=== PATIENT | male | born 1980 | race Caucasian/White ===

== ENCOUNTER 2020-07-02 11:50 | Emergency (ER) | payer MEDICARE, MEDICAID, SELFPAY ==
[2020-07-02 11:59] VITALS: BP 129/81; PULSE 75; RESP 16; TEMP 36.2; O2SAT 100
--- NOTE | 2020-07-02 12:39 | ED.MALEGU ---
HPI - Male Genitourinary General Chief complaint: Urogenital-Male Stated complaint: Abd pain History of Present Illness HPI Narrative: This is a 40-year-old white male who presented to the ED today complaining of painful urination. According to his associate programmer analyst he had 2 episodes of incontinence and has been complaining of painful urination for 2 days. She denies any foul-smelling urine. Patient urinalysis was negative for UTI but he will be treated based off his symptoms. A urine culture has been ordered. The patient denies SOB, CP, palpitation, extremity numbness, lightheadedness, dizziness, constipation, diarrhea, chills, or fever. Patient is a poor historian and is unable to answer many of my questions. MD Complaint: dysuria Related Data Home Medications Medication Instructions Recorded Confirmed aripiprazole 15 mg tablet 15 mg PO tablet 12/17/19 divalproex 125 mg tablet,delayed mg PO 12/17/19 release escitalopram oxalate 10 mg tablet 10 mg PO DAILY tablet 12/17/19 escitalopram oxalate 5 mg tablet 5 mg PO tablet 12/17/19 fluticasone propionate [Flonase INTRANASAL 07/02/20 Allergy Relief] Allergies Allergy/AdvReac Type Severity Reaction Status Date / Time Penicillins Allergy Mild rash Verified 12/17/19 15:43 Review of Systems Review of Systems: Narrative: Patient is a poor historian unable to get a clear review of systems due to patient's mental status. Patient does complain of pain while urinating PMFSH Family History Family History (Updated 09/23/16 @ 10:11 by DOCTOR UNKNOWN) Father Diabetes mellitus Hypertension Other Family history of thyroid disease Social History Social History Smoking status: Never smoker Alcohol intake: current Exam Narrative: Exam Narrative: GENERAL: This is a well-nourished, well-developed patient, in no apparent distress. HEAD: normocephalic, atraumatic. EYES: PERRL. Sclera clear/white. Vision is grossly intact. EARS: External ears normal, auditory canals clear and without drainage, TMs normal without perforation. Hearing grossly intact. NOSE: External nose normal with no obvious nasal discharge, nares without redness, no rhinorrhea. THROAT: Mucous membranes moist, posterior pharynx clear. NECK: Neck supple, non-tender without lymphadenopathy, masses or thyromegaly. CARDIOVASCULAR: Regular rate and rhythm without murmurs, gallops, or rubs. RESPIRATORY: Clear to auscultation. Breath sounds equal bilaterally. No wheezes, rales, or rhonchi. GASTROINTESTINAL: Abdomen soft, non-tender, nondistended. Bowel sounds are active. No hepato-splenomegaly, or palpable masses. No guarding. SKIN: warm, intact with no suspicious lesions or rash, good texture and turgor. NEURO: awake, alert, patient with the mental delay EXTREMITIES: Normal range of motion. No edema. No calf tenderness. Negative Homans sign bilaterally. BACK: Nontender without deformity or crepitance. No flank tenderness. Const: General: cooperative Course Course Emergency Course: Patient will discharge home with Bactrim every 12 hours for 4 days. UA culture sensitivity pending Vital Signs Vital signs: Vital Signs Temperature 97.2 F L 07/02/20 11:59 Pulse Rate 75 07/02/20 11:59 Respiratory Rate 16 07/02/20 11:59 Blood Pressure 129/81 07/02/20 11:59 Pulse Oximetry 100 07/02/20 11:59 Temperature 97.2 F L 07/02/20 11:59 Pulse Rate 75 07/02/20 11:59 Respiratory Rate 16 07/02/20 11:59 Blood Pressure 129/81 07/02/20 11:59 Pulse Oximetry 100 07/02/20 11:59 MDM - Male Genitourinary Differential Diagnosis Differential diagnosis: Likely urinary tract infection and urethritis Lab Data Attestation: I reviewed the patient's lab results. Lab results narrative: UA test negative for UTI Labs: Urine Glucose Negative Reference Range: Negative Urine Bilirubin Negative Reference Range: Negative Urine Ketone
== END 2020-07-02 12:34 | disposition home or self-care (01) ==
PROVIDERS: Emergency Provider Nurse Practitioner
DX: N30.00 Acute cystitis without hematuria (principal)
CPT/HCPCS: 81003; 87086; 87088; 99213; G0463

== ENCOUNTER 2020-07-30 06:48 | Outpatient (NON) | payer MEDICARE, MEDICAID, SELFPAY ==
[2020-07-30 18:38] LABS: SARS-CoV-2 RNA PCR Negative
== END 2020-07-30 06:49 ==
PROVIDERS: PCP Family Medicine; Visit Provider Family Medicine
DX: Z20.828 Contact with and (suspected) exposure to other viral communicable diseases (principal); R51.9 Headache, unspecified; R50.9 Fever, unspecified
CPT/HCPCS: 87635; C9803; U0003

== ENCOUNTER 2020-09-03 17:15 | Emergency (ER) | payer MEDICARE, MEDICAID, SELFPAY ==
[2020-09-03 17:24] VITALS: BP 115/78; PULSE 64; RESP 16; TEMP 36.2; O2SAT 100
--- NOTE | 2020-09-03 17:50 | PC.NURSE ---
1730-When asked pt where he hurts, he points to genital area. Pt also verbally indicates discomfort with palpation of pelvic area.
--- NOTE | 2020-09-03 17:51 | ED.MALEGU ---
HPI - Male Genitourinary General Chief complaint: Urogenital-Male Stated complaint: uti symptoms Time Seen by Provider: 09/03/20 17:45 Source: patient, RN notes reviewed and other (care support representative ) Mode of arrival: ambulatory Limitations: no limitations History of Present Illness HPI Narrative: 40-year-old male who presents to [facility] care accompanied by caregiver with complaints of frequency and urgency and occasional incontinency. Patient does have mental disability and speech difficulty and caregiver states that her boss wanted him checked for urinary tract infection due to increase in his incontinency and urine being dark. When questioned if any pain with urination he denies, denies any pain in his abdomen, caregiver states some urinary frequency noted.Caregiver also states that patient does not drink fluids well especially water. MD Complaint: dysuria and other (increase incontinency) Onset (ago): day(s) (2-3) Duration: intermittent Severity: similar to previous episodes Severity scale (1-10): 4 Quality: aching Associated symptoms: Reports other (incontinency increased) Related Data Sexually active: No Home Medications Medication Instructions Recorded Confirmed aripiprazole 15 mg tablet 7.5 mg PO DAILY tablet 12/17/19 09/03/20 divalproex 125 mg tablet,delayed 125 mg PO BID 12/17/19 09/03/20 release escitalopram oxalate 5 mg tablet 5 mg PO DAILY tablet 12/17/19 09/03/20 Allergies Allergy/AdvReac Type Severity Reaction Status Date / Time Penicillins Allergy Mild rash Verified 09/03/20 17:28 Review of Systems Review of Systems: Narrative: CONSTITUTIONAL: Denies fever, chills, or sweats. EYES: Denies visual changes, redness, or discharge. ENT: Denies rhinorrhea, congestion, sore throat, or otalgia. CARDIOVASCULAR: Denies chest pain, palpitations, or edema. RESPIRATORY: Denies cough or dyspnea. GASTROINTESTINAL: Denies abdominal pain, nausea, vomiting, or diarrhea. GENITOURINARY:positive dysuria no hematuria. SKIN: Denies rash or itching. MUSCULOSKELETAL: Denies back pain, joint pain, or myalgia. NEUROLOGIC: Denies headache, numbness, or weakness. PSYCHIATRIC:Positive history of anxiety or depression, does have mental disability and difficulty with speech All systems reviewed & are unremarkable except as noted in HPI and below PENDING SALE TO [facility] Past Medical History Medical History (Updated 09/04/20 @ 15:50 by Jacquelin Martinez NP) Ear infection Erythema intertrigo Intellectual disability Speech abnormality UTI symptoms Surgical History Surgical History (Updated 09/04/20 @ 15:51 by Jacquelin Martinez NP) History of placement of ear tubes Family History Family History (Updated 09/04/20 @ 15:51 by Jacquelin Martinez NP) Father Diabetes mellitus Hypertension Other Family history of thyroid disease Heart disease Social History Social History (Updated 09/04/20 @ 15:52 by Jacquelin Martinez NP) Smoking status: Never smoker Alcohol intake: never Substance use: never Gender identity (if verbalized by the patient): Male Comments At time of signature, agree with nursing past medical, surgical, social and family history. There is no relevant family history pertinent to the presenting complaint Exam Narrative: Exam Narrative: GENERAL: Well-appearing, well-nourished, and in no acute distress. HEAD: Normocephalic, atraumatic. EYES: PERRLA and EOMI. ENT: Nares clear, no rhinorrhea or epistaxis. Mucous membranes moist. NECK: Supple.no lymphadenopathy CHEST: Clear to auscultation. No respiratory distress.SAO2 100% on room air HEART: Regular rate and rhythm. No murmur heard. Normal peripheral pulses. ABDOMEN: Soft, nontender on palpation, nondistended, normal active bowel sounds.No CVA tenderness, negative McBurney point t
--- NOTE | 2020-09-03 17:59 | PC.NURSE ---
1740-Pt unable to void. Given water to drink per request. Ok with provider.
== END 2020-09-03 18:14 | disposition home or self-care (01) ==
PROVIDERS: Emergency Provider Registered Nurse; PCP Family Medicine
DX: R30.0 Dysuria (principal); R47.9 Unspecified speech disturbances; F79 Unspecified intellectual disabilities
CPT/HCPCS: 81003; 99213; G0463

== ENCOUNTER 2020-09-08 11:00 | Outpatient (RCR) | payer MEDICARE, MEDICAID, SELFPAY ==
--- NOTE | 2020-08-13 12:11 | STOPEVAL ---
INITIAL SPEECH THERAPY EVALUATION: Thank you for referring Catalino Watts to [facility].? The patient is scheduled to be seen for therapy?to identify an AAC device for improved expressive communication 2x/week for 4 weeks. Please review, sign, date and return this plan of care SAADIA. I agree with and certify that the following plan of care is medically necessary. Referring Physician Date Attending Provider: Marva Schuler NP Referring Provider: Marva Schuler NP * Outpatient Evaluation Start: 08/11/20 11:12 Freq: Status: Active Protocol: Document 08/11/20 11:00 LONI (Rec: 08/12/20 16:32 [facility] [email or web address]) Therapy Assessment Status Assessment Status Assessment Status Evaluation Outpatient Past Medical History Past Medical History Source of Past Medical History Other Other Source of Past Medical History Medical history was taken from a RN from the pt's residential , [facility]. 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 Pt, however, reportedly exhibited (L) sided weakness and possibly (L) visual neglect/blind spots/ visual field cuts. Reportedly pt was using a [employer] obtained free of charge years ago but it apparently quit working and his family had it repaired. Pt's family typically understands the pt; however, at this time, he no longer lives with them. Subjective Information Pt is pleasant; appears very Query Text:As Reported By Patient/ shy as when asked a question, Family he giggles and looks to a familiar person. Upon reassurance, pt usually answers questions with 1-2 words which are distorted but intelligible. Prior Level of Function Activity Level (Last 3 Months) Occupation developmentally disabled Activity of Daily Living Ability Independent Indoor/Home Mobility Independent Community Mobility Independent Stairs Ability Independent Functional
--- NOTE | 2020-09-08 14:17 | STOPEVAL ---
SPEECH THERAPY DISCHARGE: Thank you for referring Catalino Watts to [facility].? The pt was seen for 6 sessions in order to teach pt on use of a speech generating device. Pt was taught use of an arleen that was downloaded to his cell phone. The pt demonstrates basic understanding of the device/arleen. Pt requires verbal cues as to when to use the arleen. Caregiver was present at all sessions and it able to encourage use in order to facilitate its use for functional communication. No further OP ST at this time. I agree with this discharge plan. Referring Physician Date Attending Provider: Marva Schuler NP Referring Provider: Marva Schuler NP *ST Outpatient Evaluation/DISCHARGE Start: 08/11/20 11:12 Freq: Status: Active Protocol: Document 09/08/20 11:00 LONI (Rec: 09/08/20 12:33 [facility] [email or web address]) Therapy Assessment Status Assessment Status Assessment Status Discharge Outpatient Past Medical History Past Medical History Source of Past Medical History Other Other Source of Past Medical History Medical history was taken from a RN from the pt's halfway , [facility]. Pain Assessment Timing of Pain Assessment Timing of Pain Assessment Assessment Self Report Self Report Pain Level 0 Pain Score Pain Score 0: Self Report ST Clinical Summary Clinical Summary ST Clinical Summary Pt presented to outpatient speech therapy with a diagnosis of developmental intellectual disability. Pt's pre existing verbal expression consisted mostly of 1-3 word responses with 50% accuracy to the unknown listener. Intelligibility was slightly greater in known contexts. Reportedly, pt was able to effectively utilize a device in the past but it is broken and not repairable. Upon initial evaluation, the pt was without a current usable alternative augmentative communication device; however, the pt had an Ipad as well as an android cell phone. Treatment focused on researching speech generating apps that could be downloaded to his android cell phone and utilized functionally. The cell phone was deemed optimal for the
== END 2020-09-09 11:09 | disposition home or self-care (01) ==
LOC: ANHST 11:00
PROVIDERS: Referring Provider Nurse Practitioner Family; Visit Provider Nurse Practitioner Family
DX: F88 Other disorders of psychological development (principal); F80.9 Developmental disorder of speech and language, unspecified; F79 Unspecified intellectual disabilities
CPT/HCPCS: 92607

== ENCOUNTER → 2021-01-12 15:17 | Outpatient (CLI) | payer MEDICARE, MEDICAID, SELFPAY ==
--- NOTE | ~2021-01-12 | XR_ITS ---
XR abdomen obstructive series 01/12/2021 15:38 Indication: Constipation Procedure: Supine and upright views of the abdomen Comparison: No prior studies for comparison. Findings: Bowel gas pattern is nonobstructive. There is a left renal stone measuring 9 mm. Visualized aspects of the lung bases unremarkable. There is dextroscoliosis centered at the thoracolumbar junct ion. Moderate colonic fecal loading. Impression: 1: Left nephrolithiasis. Reviewed, dictated and finalized at location B. Impression: 1: Left nephrolithiasis.
== END ==
PROVIDERS: PCP Nurse Practitioner; Visit Provider Nurse Practitioner
DX: K59.00 Constipation, unspecified (principal); N20.0 Calculus of kidney
CPT/HCPCS: 74019

== ENCOUNTER → 2021-02-04 09:41 | Outpatient (CLI) | payer MEDICARE, MEDICAID, SELFPAY ==
--- NOTE | ~2021-02-04 | CT_ITS ---
EXAMINATION: CT abdomen pelvis wo con DATE: 02/04/2021 10:11 INDICATION: Left renal stone TECHNIQUE: Computed tomography (CT) of the abdomen and pelvis was performed without intravenous contr ast. Automated exposure control and iterative reconstruction technique were employed. Exam dose: 817 .05 mGy-cm total exam DLP. COMPARISON: 02/04/2021 KUB 01/12/2021 KUB 09/15/2008 CT abdomen FINDINGS: Borderline heart size. No pericardial or pleural effusion. No consolidation at the lung bas es. The liver, gallbladder, bile ducts, spleen, pancreas, pancreatic duct, and adrenal glands are unremar kable. Left upper pole 9 x 15.5 mm nonobstructing calculus with attenuation of approximately 580 Hounsfield units. No right renal mass lesion or right urinary tract calculus or hydroureteronephrosis. The urinary blad kylee and prostate gland are unremarkable. Normal caliber of the abdominal aorta. No intraperitoneal or retroperitoneal or pelvic mass lesion or adenopathy or ascites. Normal appendix. No bowel obstruction, bowel wall thickening, pneumatosis or intraperitoneal free air . No suspicious osteolytic or osteoblastic lesions. IMPRESSION: Nonobstructing 9 x 15.5 mm upper pole left renal calculus Reviewed, dictated and finalized at Location A. Reviewed, dictated and finalized at location A.
--- NOTE | ~2021-02-04 | XR_ITS ---
EXAMINATION: XR abdomen/kub 1V DATE: 02/04/2021 10:11 INDICATION: Left renal stone. TECHNIQUE: A supine view of the abdomen on 2 radiographs was obtained. COMPARISON: CT abdomen and pelvis 02/04/2021 FINDINGS: There are no dilated loops of bowel. The kidneys are obscured by bowel. There is an [address] one or cluster of stones in left kidney upper pole. IMPRESSION: 1. 8 mm stone versus cluster of stones in left kidney upper pole. Reviewed, dictated and finalized at location B.
== END ==
PROVIDERS: Visit Provider Nurse Practitioner Adult Health
DX: N20.0 Calculus of kidney (principal)
CPT/HCPCS: 74018; 74176

== ENCOUNTER 2021-02-09 12:20 | Outpatient (CLI) | payer MEDICARE, MEDICAID, SELFPAY ==
[2021-02-09 13:43] LABS: Partial Thromboplastin Time 31.2 SECONDS (22.3-36.8); Prothrombin Time 13.6 Seconds (11.1-14.7)
== END 2021-02-09 12:21 | disposition home or self-care (01) ==
LOC: ANHSURGERY 12:25
PROVIDERS: PCP Family Medicine; Visit Provider Urology
DX: N20.0 Calculus of kidney (principal); Z01.818 Encounter for other preprocedural examination
CPT/HCPCS: 36415; 85610; 85730; 87077; 87086; 87088

== ENCOUNTER → 2021-02-10 06:48 | Outpatient (CLI) | payer MEDICARE, MEDICAID, SELFPAY ==
[2021-02-10 20:47] LABS: SARS-CoV-2 RNA PCR Negative
== END ==
PROVIDERS: PCP Family Medicine; Visit Provider Urology
DX: Z01.812 Encounter for preprocedural laboratory examination (principal); Z20.822 Contact with and (suspected) exposure to COVID-19
CPT/HCPCS: C9803; U0003; U0005

== ENCOUNTER 2021-02-13 01:10 | Day surgery (SDC) | payer MEDICARE, MEDICAID, SELFPAY ==
[2021-02-09 09:35] VITALS: BMI 25.0
--- NOTE | 2021-02-12 14:53 | WPDANESEPPF ---
Anes - Initial Pre Proc Eval Procedure: Operation Date: 02/13/21 08:30 Proposed Procedures p Left Renal Extracorporeal Shock Wave Lithotripsy - Jose Randle MD Date/Time: 02/12/21 14:53 Surgeon: Jose Randle MD Pre Op Diagnosis: left renal kidney stone Patient Data Age: 40 Gender: M Height: 1.91 m Weight: 90.7 kg Allergies Allergy/AdvReac Type Severity Reaction Status Date / Time Penicillins AdvReac Mild Rash Verified 02/13/21 06:45 Home Medications Medication Instructions Recorded Confirmed Type aripiprazole 15 mg tablet 7.5 mg PO DAILY tablet 12/17/19 01/12/21 History divalproex 125 mg tablet,delayed 125 mg PO BID 12/17/19 02/13/21 History release escitalopram oxalate 5 mg tablet 5 mg PO DAILY tablet 12/17/19 02/13/21 History Saccharomyces boulardii 250 mg 250 mg PO DAILY cap 01/12/21 01/12/21 History capsule cholecalciferol (vitamin D3) 25 25 mcg PO DAILY 01/12/21 01/12/21 History mcg (1,000 unit) capsule polyethylene glycol 3350 17 gram 17 g PO DAILY #30 ea 01/12/21 01/12/21 Rx oral powder packet tamsulosin 0.4 mg capsule 0.4 mg PO DAILY #7 cap 01/14/21 01/14/21 Rx escitalopram oxalate 10 mg tablet 10 mg PO DAILY 02/03/21 02/13/21 History aripiprazole 7.5 mg PO DAILY 02/09/21 02/13/21 History divalproex 125 mg PO DAILY 02/09/21 02/09/21 History escitalopram oxalate 5 mg PO DAILY 02/09/21 02/09/21 History escitalopram oxalate 10 mg PO DAILY 02/09/21 02/09/21 History Patient hx anesthesia problems: none Family hx anesthesia problems: none PMFSH Past Medical History Medical History (Updated 02/10/21 @ 10:24 by Rosita Vasquez) Ear infection Erythema intertrigo Intellectual disability Speech abnormality UTI symptoms Surgical History Surgical History (Updated 02/10/21 @ 10:24 by Rosita Vasquez) History of placement of ear tubes Family History Family History (System 04/27/21 @ 10:24 by Rosita Vasquez) Father Diabetes mellitus Hypertension Other Family history of thyroid disease Heart disease Social History Social History (System 02/10/21 @ 10:24 by Rosita Vasquez) Smoking status: Never smoker Alcohol intake: current Alcohol use details: VERY RARELY Substance use: never Substance use type: does not use Living arrangements: alone Additional living arrangements comments: ALONE IN APARTMENT COMPLEX Gender identity (if verbalized by the patient): Male Spiritual care concerns: No Anes - Eval Final PreProcedure Day of Procedure 02/12/21 14:53 Patient weight: normal Heart: regular rate and rhythm Lungs: clear to auscultation and normal air movement Airway: Mallampati scale class II Neurological: alert and oriented Last oral intake: >/= 8 hours ASA classification: III Emergent: no Anesthetic plan: proceed Anesthesia type and monitoring: general LMA Informed Consent: The patient's anesthetic plan and its attendant risks and benefits were discussed with the patient/family/POA. Questions were solicited and answers provided to the satisfaction of the patient/family/POA.
[2021-02-13] VITALS (8 sets, daily range): BP systolic 105–135; BP diastolic 67–82; PULSE 60–68; RESP 11–20; TEMP 36.2–36.9; O2SAT 94–100
--- NOTE | ~2021-02-13 | XR_ITS ---
EXAMINATION: XR abdomen/kub 1V DATE: 02/13/2021 06:38 INDICATION: Kidney stone. TECHNIQUE: A supine view of the abdomen on 2 radiographs was obtained. COMPARISON: CT abdomen and pelvis 02/04/2021 FINDINGS: There are no dilated loops of bowel. The kidneys are obscured by bowel. There is no visible urolithiasis. IMPRESSION: 1. No visible urolithiasis. Kidneys obscured by bowel. Reviewed, dictated and finalized at location A.
[2021-02-13] MEDS: LACTATED RINGERS 1,000 ML 30 ML IV CONT (07:05)
--- NOTE | 2021-02-13 07:08 | WPDHPUPDATE1 ---
History and Physical Update Update Date/Time: 02/13/21 07:08 History and Physical has been reviewed, including an updated exam of the patient. There are NO changes in the patient's condition. Risks, benefits, and alternatives have been discussed and questions answered. Patient agrees to proceed with procedure. Proceed with left renal eswl
[2021-02-13] MEDS: ceFAZolin 2 GM/D5W 50 ML 2 GM/50 ML BAG IVPB (07:24)
--- NOTE | 2021-02-13 08:00 | PM.PROC ---
Procedure Note - Detailed Date of procedure: 02/13/21 Pre-op diagnosis: left renal kidney stone Post-op diagnosis: same Procedure performed: ESWL of left renal calculus Description of procedure: Patient is taken the operative suite and correctly identified. Once anesthesia was obtained stone was localized in both planes. Two thousand five hundred shocks were given to the stone. There appeared to be fragmentation of the. Patient tolerated procedure well without any complications and was taken recovery room stable condition. Anesthesia: GLMA Surgeon: Jose Randle MD Drains: No Packing: No Pathology: none sent Complications: No immediate complications Condition: stable Disposition: PACU
== END 2021-02-13 09:39 | disposition home or self-care (01) ==
PROVIDERS: PCP Family Medicine; Visit Provider Urology
PROC: (CPT 50590; principal; 2021-02-13 08:30)
DX: N20.0 Calculus of kidney (principal); L30.4 Erythema intertrigo
CPT/HCPCS: 50590; 74018; J0690; J1100; J2250; J2405; J2704; J3010; J7120

== ENCOUNTER → 2021-03-02 13:37 | Outpatient (CLI) | payer MEDICARE, MEDICAID, SELFPAY ==
--- NOTE | ~2021-03-02 | XR_ITS ---
EXAMINATION: XR abdomen/kub 1V INDICATION: Left renal stone TECHNIQUE: Supine views of the abdomen were obtained on 2 radiographs. COMPARISON: 02/13/2021 FINDINGS: There is an 8 mm stone in the left kidney upper pole. Bowel contents project over the kidne ys limiting sensitivity for renal stones. No additional urolithiasis is identified. The bowel gas pat tern is normal. IMPRESSION: 1. Left nephrolithiasis. Reviewed, dictated and finalized at location A. IMPRESSION: 1. Left nephrolithiasis.
== END ==
PROVIDERS: PCP Family Medicine; Visit Provider Nurse Practitioner Adult Health
DX: N20.0 Calculus of kidney (principal)
CPT/HCPCS: 74018

== ENCOUNTER 2021-05-12 08:47 | Outpatient (CLI) | payer MEDICARE, MEDICAID, SELFPAY | END 2021-05-12 08:48 | disposition home or self-care (01) | LOC: ANHAUDIO 08:53 | PROVIDERS: PCP Family Medicine; Visit Provider Otolaryngology | DX: H65.21 Chronic serous otitis media, right ear (principal); H69.81 Other specified disorders of Eustachian tube, right ear; H90.42 Sensorineural hearing loss, unilateral, left ear, with unrestricted hearing on the contralateral side; H90.71 Mixed conductive and sensorineural hearing loss, unilateral, right ear, with unrestricted hearing on the contralateral side | CPT/HCPCS: 92557; 92567 ==

== ENCOUNTER 2021-06-16 01:22 | Day surgery (SDC) | payer MEDICARE, MEDICAID, SELFPAY ==
[2021-06-12 14:04] VITALS: BMI 26.3
--- NOTE | 2021-06-15 07:52 | PM.IMHP ---
H&P: HPI History of Present Illness Date/Time: 06/15/21 07:52 Patient presents for planned surgical procedures. No change in symptoms no change in history. Chief Complaint: Right otitis media, right eustachian tube dysfunction, bilateral eustachian tube dysfunction, Review of Systems Constitutional: Constitutional: Denies fatigue, Denies fever(s) and Denies lethargy Eyes: Eyes: Denies blurry vision and Denies change in vision ENT: Reports as per HPI Cardiovascular: Cardiovascular: Denies chest pain Respiratory: Respiratory: Denies cough Endocrine: Endocrine: Denies fatigue Hematologic/Lymphatic: Hematologic/Lymphatic: Denies easy bleeding, Denies easy bruising and Denies lymphadenopathy Allergic/Immunologic: Allergic/Immunologic: Denies seasonal rhinorrhea [facility] Past Medical History Medical History (Updated 06/15/21 @ 07:53 by Ramos Rendon MD) Ear infection Erythema intertrigo Intellectual disability Speech abnormality UTI symptoms Surgical History Surgical History (Updated 02/10/21 @ 10:24 by Rosita Vasquez) History of placement of ear tubes Family History Family History (System 02/10/21 @ 10:24 by Rosita Vasquez) Father Diabetes mellitus Hypertension Other Family history of thyroid disease Heart disease Social History Social History Smoking status: Never smoker Second hand tobacco smoke exposure: No Alcohol intake: current Alcohol use details: STATES VERY RARELY - [place] Substance use: never Substance use type: does not use Living arrangements: alone Additional living arrangements comments: LIVES IN [facility] Gender identity (if verbalized by the patient): Male Spiritual care concerns: No Meds Home Medications and Allergies Home Medications Medication Instructions Recorded Confirmed Type Saccharomyces boulardii 250 mg 250 mg PO DAILY cap 01/12/21 06/12/21 History capsule cholecalciferol (vitamin D3) 25 25 mcg PO DAILY 01/12/21 06/12/21 History mcg (1,000 unit) capsule polyethylene glycol 3350 17 gram 17 g PO DAILY #30 ea 01/12/21 06/12/21 Rx oral powder packet tamsulosin 0.4 mg capsule 0.4 mg PO DAILY #7 cap 01/14/21 06/12/21 Rx escitalopram oxalate 10 mg tablet 10 mg PO DAILY 02/03/21 06/12/21 History aripiprazole 7.5 mg PO DAILY 02/09/21 06/12/21 History divalproex 125 mg PO DAILY 02/09/21 06/12/21 History escitalopram oxalate 5 mg PO DAILY 02/09/21 06/12/21 History Allergies Allergy/AdvReac Type Severity Reaction Status Date / Time Penicillins AdvReac Mild Rash Verified 06/12/21 14:03 Exam Const: General: cooperative, healthy appearing, comfortable, well developed and alert HENMT: Head: normal to inspection, normocephalic and atraumatic Ears: hearing grossly normal bilaterally, external ears normal, right TM abnormal ( retracted effusion), TM normal on the left and EAC's normal General nose exam: Normal external nose present, Normal nares present, No nasal polyps present, Normal nasal mucous membranes and turbinates present and Normal septum present Face and sinus: normal facial exam Mouth: Yes Normal oral and palatal mucosa present, Yes lip normal, Yes tongue normal, Yes oropharynx normal and Yes moist mucous membranes Teeth and gingiva: dentition normal and gingiva normal Throat: posterior oropharynx normal, tonsils normal and uvula midline Eyes: General: appearance normal, both eyes and all related structures Periorbital: periorbital findings normal Eyelids: eyelids normal Conjunctivae: conjunctivae normal Sclera: sclerae normal Neck: Neck: normal visual inspection, full ROM and no lymphadenopathy Thyroid: thyroid normal Lymphatic: no lymphadenopathy noted Resp: Effort & Inspection: normal respiratory effort and able to speak in complete sentences Cardio: Jugular venous distension: no JVD Neuro: Cranial nerves: Yes CN's II-XII intact bilaterall
--- NOTE | 2021-06-15 13:47 | WPDANESEPPF ---
Anes - Initial Pre Proc Eval Procedure: Operation Date: 06/16/21 10:00 Proposed Procedures p Right Eustachian Tube Dilation, - Ramos Rendon MD s Right Myringotomy,Insertion Of Tube - Ramos Rendon MD Date/Time: 06/15/21 13:47 Surgeon: Ramos Rendon MD Pre Op Diagnosis: right eustachian tube dysfunction Patient Data Age: 41 Gender: M Height: 1.91 m Weight: 95.5 kg Allergies Allergy/AdvReac Type Severity Reaction Status Date / Time Penicillins AdvReac Mild Rash Verified 06/16/21 08:10 Home Medications Medication Instructions Recorded Confirmed Type Saccharomyces boulardii 250 mg 250 mg PO DAILY cap 01/12/21 06/16/21 History capsule cholecalciferol (vitamin D3) 25 25 mcg PO DAILY 01/12/21 06/16/21 History mcg (1,000 unit) capsule polyethylene glycol 3350 17 gram 17 g PO DAILY #30 ea 01/12/21 06/16/21 Rx oral powder packet tamsulosin 0.4 mg capsule 0.4 mg PO DAILY #7 cap 01/14/21 06/12/21 Rx escitalopram oxalate 10 mg tablet 10 mg PO DAILY 02/03/21 06/16/21 History aripiprazole 7.5 mg PO DAILY 02/09/21 06/16/21 History divalproex 125 mg PO DAILY 02/09/21 06/16/21 History escitalopram oxalate 5 mg PO DAILY 02/09/21 06/16/21 History Patient hx anesthesia problems: none Family hx anesthesia problems: none PMFSH Past Medical History Medical History (Updated 06/15/21 @ 13:48 by Arnoldo Atkins DO) Anxiety Bipolar disorder Ear infection Erythema intertrigo Intellectual disability Seizure Speech abnormality UTI symptoms Surgical History Surgical History (Updated 02/10/21 @ 10:24 by Rosita Vasquze) History of placement of ear tubes Family History Family History (System 02/10/21 @ 10:24 by Rosita Vasquez) Father Diabetes mellitus Hypertension Other Family history of thyroid disease Heart disease Social History Social History Smoking status: Never smoker Second hand tobacco smoke exposure: No Alcohol intake: current Alcohol use details: STATES VERY RARELY - [place] Substance use: never Substance use type: does not use Living arrangements: alone Additional living arrangements comments: LIVES IN [facility] Gender identity (if verbalized by the patient): Male Spiritual care concerns: No Anes - Eval Final PreProcedure Day of Procedure 06/15/21 13:47 Patient weight: overweight Heart: regular rate and rhythm Lungs: clear to auscultation and normal air movement Airway: Mallampati scale class III Neurological: alert and oriented Last oral intake: >/= 8 hours ASA classification: III Emergent: no Anesthetic plan: proceed Anesthesia type and monitoring: general LMA and standard monitoring Informed Consent: The patient's anesthetic plan and its attendant risks and benefits were discussed with the patient/family/POA. Questions were solicited and answers provided to the satisfaction of the patient/family/POA.
[2021-06-16] VITALS (8 sets, daily range): BP systolic 102–139; BP diastolic 73–85; PULSE 54–68; RESP 15–20; TEMP 36.2–36.3; O2SAT 97–100
--- NOTE | 2021-06-16 07:07 | WPDHPUPDATE1 ---
History and Physical Update Update Date/Time: 06/16/21 07:07 History and Physical has been reviewed, including an updated exam of the patient. There are NO changes in the patient's condition. Risks, benefits, and alternatives have been discussed and questions answered. Patient agrees to proceed with procedure.
[2021-06-16] MEDS: ACETAMINOPHEN 500 MG TABLET 1000 MG PO (08:08)
[2021-06-16] MEDS: LACTATED RINGERS 1,000 ML 30 ML IV CONT (08:30)
[2021-06-16 09:13] LABS: Valproic Acid 18.3 ug/mL (50-120)
[2021-06-16] MEDS: CIPROFLOXACIN HCL 0.3% OP SOLN 2.5 ML BTL 4 DROP EACH EAR (10:12)
[2021-06-16] MEDS: OXYMETAZOLINE HCL 0.05% NAS 15 ML BTL (*BKC) 1 SPRAY XX (10:15)
--- NOTE | 2021-06-16 10:51 | W.PM.PROC2 ---
Procedure Note - Detailed Date of Procedure 06/16/21 Pre-op Diagnosis Bilateral eustachian tube dysfunction, right-sided serous otitis media Post-op Diagnosis same Procedure Performed Bilateral myringotomy tube insertion, bilateral eustachian tube balloon dilation Surgeon Ramos Rendon MD Anesthesia general (LMA) Indications See above Findings Right-sided a TM retraction serous effusion left-sided severe TM retraction Description of Procedure The patient was correctly identified set was verified in the preoperative holding area. The patient then brought to the operating room time was performed. General anesthesia was induced and an LMA was secured the patient's airway. Mario microscope onto the operative field cerumen cleaned from the bilateral external auditory canals right TM retracted serous effusion myringotomy performed with myringotomy blade T-tube inserted similar procedure performed on the left side however there was no fluid in the left middle ear but severe retraction was noted. 0 degree endoscope utilized to view the bilateral nasal passages [place] elevator utilized to fracture the bilateral inferior turbinates for access Afrin-soaked pledgets placed allowed to sit for 5 minutes balloon inserted under endoscopic guidance inserted into the right torus inflated for 2 minutes then deflated no brisk bleeding noted. Similar procedure performed on the left side with similar findings. All the hardware was removed. Drops placed the bilateral EACs. I performed all dictated portions of procedure blood loss 1 cc care the patient was turned over to Anesthesiology no immediate complications. Estimated Blood Loss 1 Drains No Packing No Pathology none sent Complications No immediate complications Condition stable Disposition PACU
== END 2021-06-16 12:14 | disposition home or self-care (01) ==
PROVIDERS: Anesthesiology; PCP Family Medicine; Visit Provider Otolaryngology
PROC: (CPT 69436; principal; 2021-06-16 10:00)
PROC: (CPT 69436; 2021-06-16 10:00)
DX: H69.83 Other specified disorders of Eustachian tube, bilateral (principal); H65.21 Chronic serous otitis media, right ear; H73.893 Other specified disorders of tympanic membrane, bilateral; F31.9 Bipolar disorder, unspecified; F79 Unspecified intellectual disabilities; Z79.899 Other long term (current) drug therapy; Z88.0 Allergy status to penicillin
CPT/HCPCS: 69436; 36415; 80164; A9270; C1726; J1100; J2250; J2405; J2704; J3010; J7120

== ENCOUNTER 2021-12-06 19:36 | Emergency (ER) | payer MEDICARE, MEDICAID, SELFPAY ==
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
[2021-12-06 19:44] VITALS: BP 134/86; PULSE 71; RESP 18; TEMP 36.8; O2SAT 100
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
[2021-12-06 21:26] VITALS: BP 129/70; PULSE 78; RESP 18; O2SAT 98
== END 2021-12-06 21:27 | disposition home or self-care (01) ==
PROVIDERS: Emergency Provider Nurse Practitioner Family; PCP Family Medicine
DX: S80.01XA Contusion of right knee, initial encounter (principal); F41.9 Anxiety disorder, unspecified; F31.9 Bipolar disorder, unspecified; F79 Unspecified intellectual disabilities; V03.10XA Pedestrian on foot injured in collision with car, pick-up truck or van in traffic accident, initial encounter
CPT/HCPCS: 73562; 99283

== ENCOUNTER 2021-12-28 17:03 | Emergency (ER) | payer MEDICARE, MEDICAID, SELFPAY ==
[2021-12-28 17:06] VITALS: BP 142/84; PULSE 81; RESP 14; TEMP 36.4; O2SAT 99
--- NOTE | 2021-12-28 17:47 | ECG_ITS ---
Measurements Intervals [place] Rate: 69 P: 49 MO: 137 QRS: 64 QRSD: 86 T: 119 QT: 381 QTc: 409 Interpretive Statements SINUS RHYTHM MILD ST CHANGES, PROBABLY EARLY REPOLARIZATION NO PREVIOUS ECG AVAILABLE FOR COMPARISON Electronically Signed On 12-29-2021 12:07:32 CDT by Lilly Londono M.D.
--- NOTE | 2021-12-28 17:54 | ED.GENADULT ---
HPI - General Adult General Chief complaint: Overdose Stated complaint: ingestion of melatonin Time Seen by Provider: 12/28/21 17:48 Source: patient and family Mode of arrival: ambulatory Limitations: other (Intellectual disability) History of Present Illness HPI narrative: Patient 41-year-old male with history of intellectual disability who presents the ED with his mother with report of overdose on melatonin. Patient's mother at bedside reports she bought a bottle of 10 mg melatonin today around 2:00 PM today. The patient's caregiver arrived around 4:30 PM and noticed that the bottle was completely empty. The bottle contained 120 gummies. Currently, patient reports eating 1 gummy, but when questioned again he reports that the rest of them are in his stomach. Mother reports that patient appears very sleepy and is usually much more animated and talkative. Patient reports having abdominal pain currently, but denies any nausea, chest pain, SOB. Patient takes several medications for his mood disorders, but mother reports these pills remain in a pillbox and did not appear to be missing. Patient was asked several times if he was trying to hurt himself by taking the Gummies, to which he reported yes and no. Related Data Home Medications Medication Instructions Recorded Confirmed cholecalciferol (vitamin D3) 25 25 mcg PO DAILY 01/12/21 11/30/21 mcg (1,000 unit) capsule escitalopram oxalate 10 mg tablet 10 mg PO DAILY 02/03/21 11/30/21 divalproex 125 mg PO DAILY 02/09/21 11/30/21 escitalopram oxalate 5 mg PO DAILY 02/09/21 11/30/21 aripiprazole 15 mg tablet 15 mg PO DAILY tablet 08/12/21 11/30/21 fluticasone propionate 50 1 spray INTRANASAL DAILY 08/12/21 11/30/21 mcg/actuation nasal spray,suspension Allergies Allergy/AdvReac Type Severity Reaction Status Date / Time Penicillins AdvReac Mild Rash Verified 10/15/21 09:24 Review of Systems Review of Systems: CONSTITUTIONAL: Denies fever, chills, or sweats. CARDIOVASCULAR: Denies chest pain. RESPIRATORY: Denies dyspnea. GASTROINTESTINAL: Reports abdominal pain. Denies nausea, vomiting, or diarrhea. ROS unobtainable: Yes unobtainable due to mental status (ROS limited due to intellectual disability) PMFSH Past Medical History Medical History Anxiety Bipolar disorder Ear infection Erythema intertrigo Intellectual disability Seizure Speech abnormality UTI symptoms Surgical History Surgical History History of placement of ear tubes Family History Family History Father Diabetes mellitus Hypertension Other Family history of thyroid disease Heart disease Social History Social History Smoking status: Never smoker Second hand tobacco smoke exposure: No Alcohol intake: current Alcohol use details: STATES VERY RARELY - [place] Substance use: never Substance use type: does not use Additional [facility] Gender identity (if verbalized by the patient): Male Spiritual care concerns: No Exam Narrative: GENERAL: Well appearing, well-nourished, non-toxic, in no acute distress. HEAD: Normocephalic, atraumatic. EYES: EOMI, conjunctivae clear bilaterally. NOSE: Normal, no drainage NECK: Supple. No adenopathy, no masses. RESPIRATORY: Airway patent, respirations nonlabored. Clear to auscultation bilaterally, no rales, rhonchi, wheezing. CARDIOVASCULAR: Regular rate and rhythm without murmurs, rubs, or gallops. Peripheral pulses 2+ and equal bilaterally. ABDOMINAL: Soft, nontender to palpation in all quadrants, nondistended. Normoactive BS. MUSCULOSKELETAL: Moves all extremities. Strength/ROM intact without gross deformities or TTP. No edema. SKIN: Warm, dry, normal color. No rashes. NEURO
--- NOTE | 2021-12-28 17:57 | PC.NURSE ---
Poison control called, spoke to Mony TEAGUE. Advised to monitor for drowsiness, upset stomach. If this was a self harm attempt, recommended a tox screen to rule out co-ingestion of other substances. Melatonin has a ceiling effect at 10 mg and peaks 1 hour after ingestion. Recommended supportive care for symptoms.
[2021-12-28 18:30] LABS: Basophils Absolute Auto 0.1 K/mm3 (0.0-0.1); Basophils Percent Auto 0.8 % (0.2-1.2); Eosinophils Absolute Auto 0.2 K/mm3 (0-0.3); Eosinophils Percent Auto 2.1 % (0-4.4); Hematocrit 46.6 % (42.0-52.0); Hemoglobin 16.1 g/dL (14.0-18.0); Immature Granulocyte Absolute 0.05 K/mm3 (0.00-0.031); Immature Granulocyte Percent A 0.7 % (0-0.5); Lymphocytes Absolute Auto 2.23 K/mm3 (0.9-3.2); Lymphocytes Percent Auto 29.9 % (18.3-44.2); Mean Corpuscular HGB Conc 34.5 g/dl (32-36); Mean Corpuscular Hemoglobin 31.9 pg (26-34); Mean Corpuscular Volume 92.5 fl (80-100); Mean Platelet Volume 10.8 fl (7.4-10.4); Monocytes Absolute Auto 0.5 K/mm3 (0.1-0.6); Monocytes Percent Auto 6.7 % (2.6-8.5); Neutrophils Absolute Auto 4.5 K/mm3 (1.3-6.7); Neutrophils Percent Auto 59.8 % (45.5-73.1); Platelet Count Result 198 k/mm3 (150-375); Red Blood Count 5.04 M/mm3 (4.6-6.20); Red Cell Distribution Width 12.1 % (11.5-14.5); White Blood Count 7.5 K/mm3 (4.5-10.0)
[2021-12-28 18:40] LABS: Acetaminophen < 10 ug/mL (10-30); Ethanol < 10 mg/dL (<10); Salicylate < 1.0 mg/dL (2-20)
[2021-12-28 18:54] LABS: Alanine Aminotransferase 29 U/L (4-50); Albumin Level 4.2 g/dL (3.5-5.1); Alkaline Phosphatase 219 U/L (38-126); Anion Gap 8 mmol/L (8-16); Aspartate Amino Transferase 27 U/L (17-59); Bilirubin,Total 0.4 mg/dL (0.2-1.3); Blood Urea Nitrogen 16 mg/dL (9-20); Calcium 8.7 mg/dL (8.4-10.2); Carbon Dioxide 25 mmol/L (22-30); Chloride 107 mmol/L (98-107); Estimated Glomerular Filt Rate > 60; Glucose 120 mg/dL (65-110); Sodium 140 mmol/L (137-145)
[2021-12-28 19:18] LABS: Valproic Acid 25.3 ug/mL (50-120)
[2021-12-28 19:26] LABS: Thyroid Stimulating Hormone 0.944 uIU/mL (0.465-4.680)
--- NOTE | 2021-12-28 20:45 | PC.NURSE ---
Spoke to patient and his mother regarding need for urine sample. Mother stated that he was given a urinal but he can't use it by himself. Advised both patient and mother to call for assistance when he feels that he can urinate.
[2021-12-28 21:04] VITALS: BP 108/86; PULSE 75; RESP 16; TEMP 36.6; O2SAT 96
--- NOTE | 2021-12-28 21:04 | PC.NURSE ---
Mony TEAGUE from poison control called to check on the patient.
[2021-12-28 22:08] LABS: Add Urine Microscopic? YES; Appearance Urine Cloudy (Clear); Bilirubin Urine 2+ (Negative); Color Urine Yellow (Yellow); Glucose Urine UA Negative (Negative); Ketones Urine Negative (Negative); Leukocyte Esterase Ur Negative LEU/UL (Negative); Mucus Urine Moderate /lpf; Nitrate Urine Negative (Negative); Protein Urine Negative (Negative); Specific Grav Ur 1.028 (1.001-1.035); Squamous Epithelial Cell Urine Rare /hpf (Few)
[2021-12-28 22:11] LABS: Blood Urine Negative (Negative)
[2021-12-28 22:15] LABS: Amphetamine Screen Urine Negative (Negative); Barbiturate Screen Urine Negative (Negative); Benzodiazepines Screen Urine Negative (Negative); Cannabinoid Screen Urine Negative (Negative); Cocaine Screen Urine Negative (Negative); Methadone Screen Urine Negative (Negative); Opiate Screen Urine Negative (Negative); Phencyclidine Screen Urine Negative (Negative)
--- NOTE | 2021-12-28 22:42 | PC.NURSE ---
Upon entering the room to perform COVID swab mother was tearful. Upon questioning she states that she does not believe he is suicidal and he has no capacity to understand what is going on. When this sports writer asked the patient why he took the medicine he states its candy . Pt denies SI/HI/AVH. gui developer, primary Rn and provider made aware.
--- NOTE | 2021-12-28 22:53 | PC.NURSE ---
Mony TEAGUE from poison control called to check on the patient. Will call back after crisis assessment is complete to determine plan.
== END 2021-12-28 23:40 | disposition home or self-care (01) ==
PROVIDERS: Physician Assistant; Emergency Provider Emergency Medicine; PCP Family Medicine
DX: T50.991A Poisoning by other drugs, medicaments and biological substances, accidental (unintentional), initial encounter (principal); F79 Unspecified intellectual disabilities; F31.9 Bipolar disorder, unspecified; F41.9 Anxiety disorder, unspecified; R82.998 Other abnormal findings in urine; Z79.899 Other long term (current) drug therapy
CPT/HCPCS: 36415; 51701; 80053; 80164; 80307; 81001; 84443; 85025; 87086; 93005; 99283

== ENCOUNTER 2022-03-04 08:13 | Outpatient (CLI) | payer MEDICARE, MEDICAID, SELFPAY ==
--- NOTE | ~2022-03-04 | XR_ITS ---
XR abdomen/kub 1V 03/04/2022 08:35 Indication: Left renal stone Procedure: KUB Comparison: 03/02/2021 Findings: There is an 8 mm stone at the upper pole of the left kidney. Bowel gas pattern nonobstructi ve. No acute osseous abnormality. Lung bases unremarkable. Impression: 1: Left nephrolithiasis. Reviewed, dictated and finalized at location B. Impression: 1: Left nephrolithiasis.
== END 2022-03-04 08:14 | disposition home or self-care (01) ==
PROVIDERS: PCP Family Medicine; Visit Provider Urology
DX: N20.0 Calculus of kidney (principal)
CPT/HCPCS: 74018

== ENCOUNTER 2022-12-10 09:25 | Outpatient (CLI) | payer MEDICARE, MEDICAID, SELFPAY ==
[2022-12-10 18:34] LABS: Basophils Absolute Auto 0.1 K/mm3 (0.0-0.1); Basophils Percent Auto 0.7 % (0.2-1.2); Eosinophils Absolute Auto 0.2 K/mm3 (0-0.3); Eosinophils Percent Auto 2.4 % (0-4.4); Hematocrit 51.2 % (42.0-52.0); Hemoglobin 17.2 g/dL (14.0-18.0); Immature Granulocyte Absolute 0.02 K/mm3 (0.00-0.031); Immature Granulocyte Percent A 0.3 % (0-0.5); Lymphocytes Absolute Auto 1.96 K/mm3 (0.9-3.2); Lymphocytes Percent Auto 29.4 % (18.3-44.2); Mean Corpuscular HGB Conc 33.6 g/dl (32-36); Mean Corpuscular Hemoglobin 31.5 pg (26-34); Mean Corpuscular Volume 93.8 fl (80-100); Mean Platelet Volume 11.9 fl (7.4-10.4); Monocytes Absolute Auto 0.4 K/mm3 (0.1-0.6); Monocytes Percent Auto 6.4 % (2.6-8.5); Neutrophils Absolute Auto 4.1 K/mm3 (1.3-6.7); Neutrophils Percent Auto 60.8 % (45.5-73.1); Platelet Count Result 186 k/mm3 (150-375); Red Blood Count 5.46 M/mm3 (4.6-6.20); Red Cell Distribution Width 12.3 % (11.5-14.5); White Blood Count 6.7 K/mm3 (4.5-10.0)
[2022-12-10 19:00] LABS: Alanine Aminotransferase 39 U/L (6-50); Albumin Level 4.5 g/dL (3.5-5.1); Alkaline Phosphatase 247 U/L (38-126); Anion Gap 5 mmol/L (8-16); Aspartate Amino Transferase 33 U/L (17-59); Bilirubin,Total 1.1 mg/dL (0.2-1.3); Blood Urea Nitrogen 12 mg/dL (9-20); Calcium 9.3 mg/dL (8.4-10.2); Carbon Dioxide 32 mmol/L (22-30); Chloride 101 mmol/L (98-107); Cholesterol 219 mg/dL (0-200); Estimated Glomerular Filt Rate > 60; Glucose 84 mg/dL (65-110); HDL Direct 30 mg/dL; Potassium 4.3 mmol/L (3.4-5.0); Sodium 138 mmol/L (137-145); Triglycerides 227 mg/dL (<150)
[2022-12-10 19:11] LABS: LDL Cholesterol Direct 116 mg/dL
== END 2022-12-10 09:26 | disposition home or self-care (01) ==
LOC: ANHGOSHLAB 09:27
PROVIDERS: PCP Family Medicine; Visit Provider Nurse Practitioner
DX: E78.5 Hyperlipidemia, unspecified (principal)
CPT/HCPCS: 36415; 80053; 80061; 85025

== ENCOUNTER 2023-02-10 08:28 | Outpatient (CLI) | payer MEDICARE, MEDICAID, SELFPAY ==
--- NOTE | ~2023-02-10 | XR_ITS ---
EXAMINATION: XR abdomen/kub 1V INDICATION: Left renal stone TECHNIQUE: Supine views of the abdomen were obtained on 2 radiographs. COMPARISON: 03/04/2022 FINDINGS: There is a 10 mm stone of the left kidney upper pole. No additional urolithiasis is identif ied. No stones are identified in the ureters or bladder. The visualized lung bases are clear. The bow el gas pattern is normal. IMPRESSION: 1. Left nephrolithiasis. Reviewed, dictated and finalized at location L. IMPRESSION: 1. Left nephrolithiasis.
== END 2023-02-10 08:29 | disposition home or self-care (01) ==
PROVIDERS: PCP Family Medicine; Visit Provider Urology
DX: N20.0 Calculus of kidney (principal)
CPT/HCPCS: 74018

== ENCOUNTER 2023-12-05 08:23 | Outpatient (CLI) | payer MEDICARE, MEDICAID, SELFPAY ==
[2023-12-05 13:35] LABS: Alanine Aminotransferase 24 U/L (6-50); Albumin Level 4.2 g/dL (3.5-5.1); Alkaline Phosphatase 224 U/L (38-126); Anion Gap 6 mmol/L (8-16); Aspartate Amino Transferase 37 U/L (17-59); Blood Urea Nitrogen 15 mg/dL (9-20); Calcium 9.5 mg/dL (8.4-10.2); Carbon Dioxide 30 mmol/L (22-30); Chloride 103 mmol/L (98-107); Cholesterol 205 mg/dL (0-200); Estimated Glomerular Filt Rate > 60; Glucose 77 mg/dL (65-110); HDL Direct 34 mg/dL; Potassium 4.4 mmol/L (3.4-5.0); Sodium 139 mmol/L (137-145); Triglycerides 160 mg/dL (<150)
[2023-12-05 13:45] LABS: Vitamin D 25 Hydroxy 61.9 ng/mL
[2023-12-05 13:47] LABS: LDL Cholesterol Direct 132 mg/dL
[2023-12-05 14:03] LABS: Thyroid Stimulating Hormone 0.847 uIU/mL (0.465-4.680)
[2023-12-05 14:30] LABS: Hemoglobin A1C 4.9 % (<5.7)
== END 2023-12-05 08:24 | disposition home or self-care (01) ==
LOC: ANHGOSHLAB 08:25
PROVIDERS: PCP Family Medicine; Visit Provider Nurse Practitioner Family
DX: R73.03 Prediabetes (principal); E78.5 Hyperlipidemia, unspecified; Z13.29 Encounter for screening for other suspected endocrine disorder; E55.9 Vitamin D deficiency, unspecified
CPT/HCPCS: 36415; 80053; 80061; 82306; 83036; 84443

== ENCOUNTER 2023-12-15 12:26 | Outpatient (CLI) | payer MEDICARE, MEDICAID, SELFPAY ==
--- NOTE | 2023-12-15 12:35 | ECHO_ITS ---
Patient Info Name: Catalino Watts Age: 43 years : 1980 Gender: Male Ht: 74 in Wt: 205 lbs BSA: 2.21 m2 HR: 65 bpm BP: 122 / 80 mmHg Technical Quality: Fair Exam Date: 12/15/2023 12:45 PM Exam Location: Echo Lab Patient Status: Outpatient Admit Date: 12/15/2023 Staff Ordering Physician: Em Castillo APRN Schedule Planning Manager: Attending Provider: Leilani Juarez MD Referring Physician: Anna CHAVEZ; Exam Type: CA echo doppler color flow Study Info Indications R94.31 - Abnormal electrocardiogram ECG EKG Complete two-dimensional, color flow and Doppler transthoracic echocardiogram is performed. Summary 1. Complete two-dimensional, color flow and Doppler transthoracic echocardiogram is performed. 2. Left ventricular chamber dimension is normal. 3. Left ventricular systolic function is normal, estimated at 60-65%. 4. The left ventricular diastolic function is normal. 5. E/e' 7 is not elevated. 6. Dilated inferior vena cava with >50% collapse upon inspiration consistent with elevated right atrial pressure, 10 mmHg. Left Ventricle E/e' 7 is not elevated. Left ventricular chamber dimension is normal. Left ventricular systolic function is normal, estimated at 60-65%. The left ventricular diastolic function is normal. Right Ventricle Right ventricular systolic function is normal and with normal TAPSE 2.2 cm. Right ventricular chamber dimension is normal. Left Atria Left atrial chamber dimension is normal. Right Atria Right atrial chamber dimension is normal. Aortic Valve The aortic valve is trileaflet. There is no aortic valve stenosis. There is no aortic valve regurgitation. Pulmonic Valve There is no pulmonic regurgitation. Mitral Valve There is no mitral valve stenosis. There is no mitral valve regurgitation. Tricuspid Valve There is no tricuspid valve regurgitation. Pericardium/Pleural There is no pericardial effusion. Inferior Vena Cava Dilated inferior vena cava with >50% collapse upon inspiration consistent with elevated right atrial pressure, 10 mmHg. Aorta The aortic root size at the sinus of Valsalva is normal. Left Ventricular Outflow Tract Name Value Normal LVOT 2D LVOT Diameter 2.0 cm LVOT Doppler LVOT Peak Gradient 3 mmHg LVOT Mean Gradient 2 mmHg LVOT VTI 27 cm LVOT VTI/AV VTI Ratio 0.9 LVOT Stroke Volume 85 ml LVOT CO 4.4 l/min LVOT CI 2.0 l/min/m2 Pulmonic Valve Name Value Normal PV Doppler PV Peak Gradient 4 mmHg Mitral Valve Name Value Normal MV Doppler
== END 2023-12-15 12:27 | disposition home or self-care (01) ==
LOC: ANHCARD 12:27
PROVIDERS: PCP Family Medicine; Visit Provider Family Medicine
DX: R94.31 Abnormal electrocardiogram [ECG] [EKG] (principal); R07.9 Chest pain, unspecified
CPT/HCPCS: 93306

== ENCOUNTER 2024-03-19 09:26 | Outpatient (CLI) | payer MEDICARE, MEDICAID, SELFPAY ==
--- NOTE | ~2024-03-19 | XR_ITS ---
Supine and upright views of the abdomen Clinical history: Left renal stone COMPARISON: 02/10/2023 Findings: Bowel gas pattern is nonspecific. No evidence for obstruction or free air. Probable left up per pole renal stone is essentially unchanged from prior exam. Osseous structures are intact. Impression: Stable presumed left upper pole renal stone/stones. Reviewed, dictated and finalized at [facility]. Impression: Stable presumed left upper pole renal stone/stones.
== END 2024-03-19 09:27 | disposition home or self-care (01) ==
PROVIDERS: PCP Family Medicine; Visit Provider Urology
DX: N20.0 Calculus of kidney (principal)
CPT/HCPCS: 74018

== ENCOUNTER 2024-05-02 09:09 | Outpatient (CLI) | payer MEDICARE, MEDICAID, SELFPAY ==
--- NOTE | ~2024-05-02 | XR_ITS ---
MODIFIED ESOPHAGRAM HISTORY: Dysphagia. TECHNIQUE: Modified barium esophagram was performed on 05/02/2024. I administered fluoroscopy and perf ormed the exam with speech pathologist. Patient was seated for lateral fluoroscopic imaging for ron stion of thin liquids, pudding, solids and quantified amounts, followed by thin liquids in uncontroll ed amounts. This was recorded on tape. A single fluoroscopic spot image was also recorded. The DAP fo r this procedure was 0.602 Gycm2. The amount of fluoroscopy time used during this procedure was 1.1 m inutes. FINDINGS: Oral stage: Adequate function. Pharyngeal stage: Adequate function. Cervical/esophageal stage: Adequate function. IMPRESSION: Patient tolerated regular consistency oral feedings in the upright position. Please jael elate with speech pathologist findings and specific feeding recommendations. Reviewed, dictated and finalized at location A. IMPRESSION: Patient tolerated regular consistency oral feedings in the upright position. Please correlate with speech pathologist findings and specific feedi ng recommendations.
--- NOTE | 2024-05-03 12:46 | REHSTMBS ---
Assessment and note entered by Mariela Murguia, HEADING PINNER Modified Barium Swallow Evaluation Feeding Type Recommended Oral Food Consistency Regular, Level 7 Liquid Consistency Thin (0) ST Clinical Summary MODIFIED BARIUM SWALLOW STUDY This patient was seen for a Modified Barium Swallow study at the request of his physician. Brenton's father, who was present for this evaluation, reported that patient has been becoming choked on solid foods, such as meats, to the point of vomiting the items up in order to clear the airway. He stated that he wondered if spicy types of foods/meats are an irritant to son, causing him to choke and then need to vomit. Father reports these episodes have gone on for years but recently, becoming more frequent. He stated that son has been seen by caregivers who have worked with him on slowing down his rate of feedings as he tends to eat quickly. The patient was viewed in the lateral position to the level of C5/C6. Patient was presented with thin liquid contrast medium per cup, pudding mixed with semi-solid contrast medium, and then both crackers and fruit cocktail pieces both coated with the pudding mixture. He exhibited good mastication and adequate triggering of the swallows with no evidence of penetration/ aspiration into the airway. Results suggest patient's swallowing skills are within normal limits. He was instructed to take small bites and sips, chew thoroughly, alternate solids and liquids, avoid spicy foods or any other foods that trigger the reaction. Father and patient voiced understanding of results and recommendations. He may continue to be seen by caregivers to continue to attempt to change any bad habits that may be triggering reactions. Thank you for this referral.
== END 2024-05-02 09:10 | disposition home or self-care (01) ==
LOC: ANHIMG 09:22
PROVIDERS: PCP Family Medicine; Visit Provider Nurse Practitioner
DX: R13.10 Dysphagia, unspecified (principal); R13.12 Dysphagia, oropharyngeal phase; T17.320A Food in larynx causing asphyxiation, initial encounter; W44.F3XA Food entering into or through a natural orifice, initial encounter
CPT/HCPCS: 92611

== ENCOUNTER 2024-06-15 01:04 | Day surgery (SDC) | payer MEDICARE, MEDICAID, SELFPAY ==
[2024-05-29 10:23] VITALS: BMI 26.9
[2024-06-15 11:35] VITALS: BP 130/74; PULSE 71; RESP 19; TEMP 36.6; O2SAT 100
[2024-06-15] MEDS: LACTATED RINGERS 1,000 ML 150 ML IV CONT (11:45)
--- NOTE | 2024-06-15 12:15 | WPDANESEPPF ---
Anes - Initial Pre Proc Eval Procedure: Operation Date: 06/15/24 14:30 Proposed Procedures p Esophagogastroduodenoscopy - Kermit Solis MD Date/Time: 06/15/24 12:15 Surgeon: Kermit Solis MD Pre Op Diagnosis: Dysphagia, GERD Patient Data Age: 44 Gender: M Height: 1.88 m Weight: 87 kg Last Vital Signs Temp 97.9 F 06/15/24 11:35 Pulse 71 06/15/24 11:35 Resp 19 06/15/24 11:35 BP 130/74 06/15/24 11:35 Pulse Ox 100 06/15/24 11:35 O2 Del Method Room Air 06/15/24 11:35 Allergies Allergy/AdvReac Type Severity Reaction Status Date / Time Penicillins AdvReac Mild Rash Verified 06/15/24 11:31 Home Medications Medication Instructions Recorded Confirmed Type cholecalciferol (vitamin D3) 25 25 mcg PO DAILY 01/12/21 06/15/24 History mcg (1,000 unit) capsule clotrimazole 1 % topical cream 1 applic topical DAILY 05/31/22 06/15/24 History aripiprazole 15 mg tablet 7.5 mg PO DAILY 06/07/22 06/15/24 History divalproex 125 mg tablet,delayed 125 mg PO BID 06/07/22 06/15/24 History release escitalopram oxalate 20 mg tablet 20 mg PO DAILY 06/07/22 06/15/24 History mirabegron 25 mg tablet,extended 25 mg PO DAILY 06/07/22 06/15/24 History release 24 hr (Myrbetriq) calcium polycarbophil 625 mg 1,250 mg PO BID #60 tabs 11/01/22 06/15/24 Rx tablet (Fiber (calcium polycarbophil)) cetirizine 10 mg capsule (Zyrtec) 10 mg PO DAILY PRN Allergy Symptoms 03/31/23 06/15/24 History famotidine 40 mg tablet 40 mg PO BID #60 tabs 04/12/24 06/15/24 Rx Patient hx anesthesia problems: none Family hx anesthesia problems: none Results Review: All pre-operative results and documents have been reviewed as part of the pre-operative evaluation. [facility] Past Medical History Medical History Abnormal EKG Anxiety Bipolar disorder Chest pain Ear infection Erythema intertrigo Intellectual disability OAB (overactive bladder) Seizure Speech abnormality UTI symptoms Surgical History Surgical History History of placement of ear tubes Family History Family History Father Diabetes mellitus Hypertension Other Family history of thyroid disease Heart disease Social History Social History Smoking status: Never smoker Second hand tobacco smoke exposure: No Alcohol intake: current Alcohol use details: STATES VERY RARELY - [place] Substance use: never Substance use type: does not use Lack of Transportation: No Lack of Food: Never True Current Housing: I Have Housing Concerned About Future Housing: No Difficulty Paying Gas/Electric Bills: No Difficulty Paying for Meds: No Currently Unemployed: No Education: High School Diploma/GED Difficulty w/ Childcare or Family Care: No Living arrangements: with family Additional living arrangements comments: LIVES IN [facility] Gender identity (if verbalized by the patient): Male Spiritual care concerns: No Anes - Eval Final PreProcedure Day of Procedure 06/15/24 12:15 Patient weight: normal Heart: regular rate and rhythm Lungs: clear to auscultation Airway: Mallampati scale class III Neurological: alert and oriented Last oral intake: >/= 8 hours ASA classification: III Emergent: no Anesthetic plan: proceed Anesthesia type and monitoring: general GIVS and standard monitoring Results Review: All pre-operative results and documents have been reviewed as part of the pre-operative evaluation. Informed Consent: The patient's anesthetic plan and its attendant risks and benefits were discussed with the patient/family/POA. Questions were solicited and answers provided to the satisfaction of the patient/family/POA.
--- NOTE | 2024-06-15 12:28 | PM.HPGS ---
History of Present Illness History of Present Illness Consent: Risks, benefits, and alternatives have been discussed and questions answered. Patient agrees to proceed with procedure. Chief complaint: Dysphagia, GERD Narrative: Catalino Watts is a 44 year old male here for first egd, regurgitation and choking after eating- he has h/o intellectual disability, seizures Review of Systems Review of Systems: All systems reviewed & are unremarkable except as noted in HPI and below PMFSH Past Medical History Medical History Abnormal EKG Anxiety Bipolar disorder Chest pain Ear infection Erythema intertrigo Intellectual disability OAB (overactive bladder) Seizure Speech abnormality UTI symptoms Surgical History Surgical History History of placement of ear tubes Family History Family History Father Diabetes mellitus Hypertension Other Family history of thyroid disease Heart disease Social History Social History Smoking status: Never smoker Second hand tobacco smoke exposure: No Alcohol intake: current Alcohol use details: STATES VERY RARELY - [place] Substance use: never Substance use type: does not use Lack of Transportation: No Lack of Food: Never True Current Housing: I Have Housing Concerned About Future Housing: No Difficulty Paying Gas/Electric Bills: No Difficulty Paying for Meds: No Currently Unemployed: No Education: High School Diploma/GED Difficulty w/ Childcare or Family Care: No Living arrangements: with family Additional living arrangements comments: [facility] Gender identity (if verbalized by the patient): Male Spiritual care concerns: No Meds Home Medications and Allergies Home Medications Medication Instructions Recorded Confirmed Type cholecalciferol (vitamin D3) 25 25 mcg PO DAILY 01/12/21 06/15/24 History mcg (1,000 unit) capsule clotrimazole 1 % topical cream 1 applic topical DAILY 05/31/22 06/15/24 History aripiprazole 15 mg tablet 7.5 mg PO DAILY 06/07/22 06/15/24 History divalproex 125 mg tablet,delayed 125 mg PO BID 06/07/22 06/15/24 History release escitalopram oxalate 20 mg tablet 20 mg PO DAILY 06/07/22 06/15/24 History mirabegron 25 mg tablet,extended 25 mg PO DAILY 06/07/22 06/15/24 History release 24 hr (Myrbetriq) calcium polycarbophil 625 mg 1,250 mg PO BID #60 tabs 11/01/22 06/15/24 Rx tablet (Fiber (calcium polycarbophil)) cetirizine 10 mg capsule (Zyrtec) 10 mg PO DAILY PRN Allergy Symptoms 03/31/23 06/15/24 History famotidine 40 mg tablet 40 mg PO BID #60 tabs 04/12/24 06/15/24 Rx Allergies Allergy/AdvReac Type Severity Reaction Status Date / Time Penicillins AdvReac Mild Rash Verified 06/15/24 11:31 Vital Signs Vital Signs - 24 hr 06/15/24 11:35 Temperature 97.9 F Pulse Rate 71 Respiratory Rate 19 Blood Pressure 130/74 Pulse Oximetry 100 Oxygen Delivery Room Air Exam Const: General: comfortable and no acute distress HENMT: Face/Nose/Sinus: Normal nares present Eyes: General: appearance normal, both eyes and all related structures Neck: Neck: no JVD Resp: Auscultation: clear to auscultation bilaterally Cardio: Rate: regular rate Rhythm: regular rhythm GI: Inspection: non-distended GI Palp: Yes Soft to palpation Skin: General skin exam: normal color Neuro: General: gait normal Speech: normal speech Extrem: General: normal to inspection Psych: Mental Status: mental status grossly normal Assessment and Plan Assessment and plan (1) Dysphagia, oropharyngeal phase: Code(s): R13.12 - Dysphagia, oropharyngeal phase Status: Acute Assessment and Plan: will assess with egd
[2024-06-15 12:50] VITALS: BP 122/75; PULSE 74; RESP 19; O2SAT 97
[2024-06-15 13:00] VITALS: BP 115/71; PULSE 62; RESP 19; O2SAT 97
[2024-06-15 13:10] VITALS: BP 120/72; PULSE 60; RESP 19; O2SAT 99
== END 2024-06-15 13:25 | disposition home or self-care (01) ==
PROVIDERS: PCP Family Medicine; Referring Provider Otolaryngology; Visit Provider Internal Medicine Gastroenterology
PROC: 0DJ08ZZ Inspection of Upper Intestinal Tract, Via Natural or Artificial Opening Endoscopic (ICD-10-PCS; CPT 43235; principal; 2024-06-15 14:30)
DX: K21.00 Gastro-esophageal reflux disease with esophagitis, without bleeding (principal); K29.50 Unspecified chronic gastritis without bleeding; R13.11 Dysphagia, oral phase; F31.9 Bipolar disorder, unspecified; N32.81 Overactive bladder; G40.909 Epilepsy, unspecified, not intractable, without status epilepticus
CPT/HCPCS: 43239; 88305; J2704; J7120

== ENCOUNTER 2024-12-03 11:41 | Outpatient (CLI) | payer MEDICARE, MEDICAID, SELFPAY ==
[2024-12-03 13:51] LABS: Basophils Absolute Auto 0.1 K/mm3 (0.0-0.1); Basophils Percent Auto 0.9 % (0.2-1.2); Eosinophils Absolute Auto 0.1 K/mm3 (0-0.3); Hematocrit 49.5 % (42.0-52.0); Hemoglobin 16.4 g/dL (14.0-18.0); Immature Granulocyte Absolute 0.04 K/mm3 (0.00-0.031); Immature Granulocyte Percent A 0.6 % (0-0.5); Lymphocytes Percent Auto 26.8 % (18.3-44.2); Mean Corpuscular HGB Conc 33.1 g/dl (32-36); Mean Corpuscular Hemoglobin 31.5 pg (26-34); Monocytes Absolute Auto 0.5 K/mm3 (0.1-0.6); Monocytes Percent Auto 7.4 % (2.6-8.5); Neutrophils Absolute Auto 4.3 K/mm3 (1.3-6.7); Neutrophils Percent Auto 63.3 % (45.5-73.1); Platelet Count Result 192 k/mm3 (150-375); Red Blood Count 5.21 M/mm3 (4.6-6.20); Red Cell Distribution Width 12.4 % (11.5-14.5); White Blood Count 6.7 K/mm3 (4.5-10.0)
--- OUTSIDE RECORDS SUMMARY | 2024-12-03 14:32 | XMS_ITS | Clinical Summary ---
Author Organization [facility] Medical [facility] [address] [place] [phone] Care Team Providers Care Layer Out Name Role Phone Marta Juarez MD Primary Care Provider Allergies Active Allergy Reactions Criticality Noted Date Comments Penicillins Rash Medium 01/16/2019 Medications fluticasone (FLONASE) 50 mcg/actuation nasal spray 2 sprays daily 0 12/28/2018 Active escitalopram (LEXAPRO) 10 mg tablet TAKE 1.5 TABLETS BY MOUTH EVERY DAY 3 11/27/[address] (DEPAKOTE) 125 mg EC tablet Take 125 mg by mouth 2 (two) times a day 0 12/26/2018 Active ARIPiprazole (ABILIFY) 15 mg tablet Take 7.5 mg by mouth daily 3 12/24/2018 Active Active Problems Problem Noted Date Diagnosed Date Atelectasis of both middle ears 02/14/2019 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 unrestricted hearing of left ear 01/16/2019 Surgical History Surgery Date Site/Laterality Comments MYRINGOTOMY W/ TUBES Medical History Medical History Date Comments Anxiety Depression Sinusitis HL (hearing loss) Cognitive developmental delay Family History Medical History Relation Name Comments Diabetes Father Thyroid disease Mother Relation Name Status Comments Father Mother Social History Tobacco Use Types Packs/Day Years Used Date Smoking Tobacco: Never Smokeless Tobacco: Never Personal Safety Answer Date Recorded Getting School Help Needed Not on file 10/01 Sex and Gender Information Value Date Recorded Sex Assigned at Not on file 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 Gender Identity Not on file Sexual Orientation Not on file Obstetrics History Last Filed Vital Signs Vital Sign Reading Time Taken Comments Blood Pressure 123/84 01/15/2023 3:57 PM CDT Pulse 61 01/15/2023 3:57 PM CDT Temperature 36.1 C (97 F) 01/15/2023 3:57 PM CDT Respiratory Rate 16 01/15/2023 3:57 PM CDT Oxygen Saturation 99% 01/15/2023 3:57 PM CDT Inhaled Oxygen Concentration - - Weight 93.8 kg (206 lb 12.8 oz) 01/15/2023 3:57 PM CDT Height 182.9 cm (6') 01/15/2023 3:57 PM CDT Body Mass Index 28.05 01/15/2023 3:57 PM CDT Plan of Treatment Health Maintenance Due Date Last Done Comments Depression Screening 1982 Hepatitis C Screening 1982 DTaP/Tdap/Td Vaccine (1 - Tdap) 1993 Varicella Vaccines (1 of 2 - 13+ 2-dose series) 1995 Hepatitis B Screening 2000 Regular Well Visit/Exam 18-64 2000 Influenza Vaccine (#1) 2024 HPV Vaccines Aged Out No longer eligi ble based on patient's age to complete this topic Pneumococcal vaccine <65 Aged Out No longer eligible based on patient's age to complete this topic Insurance MEDICARE MEDICARE [facility] MEDICARE Care Teams Layer Out Relationship Specialty Start Date End Date Marta Juarez MD [facility] [address] [address] PCP - General Family Practice 12/19/23
--- OUTSIDE RECORDS SUMMARY | 2024-12-03 14:32 | XMS_ITS | Referral Summary ---
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 [address] [place] [address] Care Teams Type Copy Examiner Relationship Specialty Start Date End Date Marta Juarez MD [address] [place] [address] [address] [place] [id number] PCP - General Family Practice 12/19/23
--- OUTSIDE RECORDS SUMMARY | 2024-12-03 14:32 | XMS_ITS | Continuity of Care Document ---
Author Organization [facility] Address [id number] [place] [address] [address] [place] [address] Phone Care Team Providers Care Jailer/Training Officer Name Role Phone Tamar Lindsey Unavailable Unavailable Advance Directives Directive Yes / No Effective Date File Name No Information Encounters Encounter Description Practice Location Reason(s) For Visit Diagnoses Date Provider Providers Copied on Encounter [facility], [address], [place], [place], [id number], [place] tel:[phone] [facility] No Information [phone] Rosalia Boyle. [address] , [address], [place], [address], [place]. tel:[phone] Family History Family Member Type Diagnosis Age At Onset No Information Payers Payer name Insurance type Covered republican ID Authoriza tion(s) No Information Social History Type Description Quantity Date Captured Comments Sex Male Smoking Status No Information Chief Complaint And Reason For Visit No Information Reason For Referral Reason For Referral No Information History Of Present Illness Encounter Date Complaint History Of Prese nt Illness No Information Functional Status Date Functional Assessmen t No Information Instructions Date Instruction Additional Infor mation No Information Assessments Type Assessment Date No Information Patient Care Teams Name Effective Dates (start - stop) Status Members No Information
--- OUTSIDE RECORDS SUMMARY | 2024-12-03 14:32 | XMS_ITS | Clinical Summary ---
Author Organization [facility] Address [address] [facility] [place] [address] Phone Care Team Providers Care Shipping Assistant Name Role Phone Unavailable Primary Care Provider Unavailabl e Allergies Active Allergy Reactions Criticality Noted Date Comments Penicillins Rash Low 07/02/2019 Medications ARIPiprazole (ABILIFY) 15 mg tablet Take 15 mg by mouth daily. Active divalproex (DEPAKOTE) 125 mg Tablet, Delayed Release (E.C.) Take 125 mg by mouth 3 times daily. Active escitalopram oxalate (LEXAPRO) 10 mg tablet Take 10 mg by mouth daily. Active escitalopram oxalate (LEXAPRO) 5 mg tablet Take 5 mg by mouth daily. Active sodium, potassium and magnesium sulfates (SUPREP BOWEL PREP KIT) 17.5-3.13-1.6 gram Recon Soln Take 177 mL by mouth see administration instructions. 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 Gender Identity Not on file Sexual Orientation Not on file Last Filed Vital Signs Vital Sign Reading Time Taken Comments Blood Pressure 112/85 09/24/2019 9:59 AM REFERRAL MANAGEMENT LIAISON Pulse 76 09/24/2019 9:59 AM REFERRAL MANAGEMENT LIAISON Temperature 36.6 C (97.9 F) 09/10/2019 3:37 PM REFERRAL MANAGEMENT LIAISON Respiratory Rate 16 09/10/2019 4:00 PM REFERRAL MANAGEMENT LIAISON Oxygen Saturation 97% 09/10/2019 4:00 PM REFERRAL MANAGEMENT LIAISON Inhaled Oxygen Concentration - - Weight 90.7 kg (200 lb) 09/24/2019 9:59 AM REFERRAL MANAGEMENT LIAISON Height 188 cm (6' 2 ) 09/24/2019 9:59 AM REFERRAL MANAGEMENT LIAISON Body Mass Index 25.68 09/24/2019 9:59 AM REFERRAL MANAGEMENT LIAISON Plan of Treatment Health Maintenance Due Date Last Done Comments DTAP/TDAP/TD VACCINES (1 - Tdap) 2001 HEPATITIS B VACCINES (1 of 3 - 19+ 3-dose series) 2001 INFLUENZA VACCINE (#1) 2024 HPV VACCINES Aged Out No longer eligi ble based on patient's age to complete this topic PNEUMOCOCCAL VACCINE 0-64 YEARS Aged Out No longer eligible based on patient's age to complete this topic Insurance MEDICARE PART A AND B MEDICAID [place] Advance Directives For more information, please contact: [phone] * Full Code (Latest Code Status on File) Date Activated Date Inactivated Comments 09/10/2019 1:52 PM 09/10/2019 6:43 PM
[2024-12-03 15:18] LABS: Alanine Aminotransferase 29 U/L (6-50); Albumin Level 4.4 g/dL (3.5-5.1); Alkaline Phosphatase 247 U/L (38-126); Anion Gap 9 mmol/L (4-12); Aspartate Amino Transferase 28 U/L (17-59); Bilirubin,Total 0.7 mg/dL (0.2-1.3); Blood Urea Nitrogen 13 mg/dL (9-20); Calcium 9.4 mg/dL (8.4-10.2); Carbon Dioxide 29 mmol/L (22-30); Chloride 103 mmol/L (98-107); Cholesterol 179 mg/dL (0-200); Estimated Glomerular Filt Rate > 60; Glucose 76 mg/dL (65-110); HDL Direct 41 mg/dL; Potassium 4.3 mmol/L (3.4-5.0); Sodium 141 mmol/L (137-145); Triglycerides 94 mg/dL (<150)
[2024-12-03 15:30] LABS: LDL Cholesterol Direct 121 mg/dL
[2024-12-03 17:00] LABS: Vitamin D 25 Hydroxy 60.8 ng/mL
== END 2024-12-03 11:42 | disposition home or self-care (01) ==
LOC: ANHGOSHLAB 11:42
PROVIDERS: PCP Family Medicine; Visit Provider Nurse Practitioner Family
DX: E78.5 Hyperlipidemia, unspecified (principal); E55.9 Vitamin D deficiency, unspecified; Z00.00 Encounter for general adult medical examination without abnormal findings; Z13.29 Encounter for screening for other suspected endocrine disorder; R73.03 Prediabetes
CPT/HCPCS: 36415; 80053; 80061; 82306; 84443; 85025

== ENCOUNTER 2025-04-28 10:32 | Outpatient (CLI) | payer MEDICARE, MEDICAID, SELFPAY ==
--- NOTE | ~2025-04-28 | XR_ITS ---
Supine and upright views of the abdomen Clinical history: Left renal stone COMPARISON: 03/19/2024 Findings: Bowel gas pattern is nonspecific. No evidence for obstruction or free air. Stable left uppe r quadrant calcifications. Osseous structures are intact. Impression: Stable left upper quadrant calcifications, possibly left upper pole renal stones. Reviewed, dictated and finalized at [facility]. Impression: Stable left upper quadrant calcifications, possibly left upper pole renal stone s.
--- OUTSIDE RECORDS SUMMARY | 2025-04-28 10:38 | XMS_ITS | Patient Health Record ---
Author Organization [facility] [employer] Address [address] [place] [address] Care Team Providers Care Seed Cutter Name Role Phone Larry DOS SANTOS, Marta Primary Care Provider Unavailable Angel Velasquez Unavailable [phone] Allergies Allergen (clinical drug ingredient) Drug/Non Drug Allergy documented on EMR Reaction Allergy Type Onset Date Status Substance with penicillin structure and antibacterial mechanism of action (substance) Penicillins Unknown Drug Allergy 01/19/2024 Active Reason For Referral No Information Medications Medication SIG (Take, Route, Frequency, Duration) Notes Start Date End Date Status Triamcinolone Acetonide 0.1% External 01/19/2024 Active Divalproex Sodium 125 MG 1 tablet Oral T wice a day; Duration: 90 days Active Myrbetriq 25 MG Oral 01/19/2024 Act christina ARIPiprazole 15 MG 0.5 tablet Oral Once a day; Duration: 90 days Active Famotidine 20 MG Oral 01/19/2024 Ac tive Escitalopram Oxalate 20 MG 1 tablet Oral Once a day; Duration: 90 days Active Ketoconazole 2% External 01/19/2024 Act christina traZODone HCl 50 MG Oral 01/19/2024 Active Fluocinonide 0.05 % External 01/19/2024 Active Clotrimazole 1% External 01/19/2024 Act christina Immunizations Vaccine Route Administration Date Status Comme nts Td (adult) Unknown 04/23/2010 Administered Pfizer Biontech Covid-19 Vac cine 2nd dose Unknown 08/09/2022 Administered Moderna Covid-19 Vaccine 1st dose Unknown 11/05/2020 Ad ministered Moderna Covid-19 Vaccine 1st dose Unknown 12/02/2020 Ad ministered Moderna Covid-19 Vaccine 1st dose Unknown 08/24/2021 Ad ministered Influenza virus vaccine, quadrivalent (IIV4), split virus, 0.25 mL dosage Unknown 05/17/2019 Administered Social History Tobacco Use: Social History Observation Description Date Details (start date - stop date) Never Smoker NA - NA Sex Assigned At : Social History Observation Description Sex Assigned At Male Tobacco Control (Standard) Question Answer Notes Tobacco use: Nonsmoker Problems Problem Type SNOMED Code ICD Code Onset Dates Problem Status W/U Status Risk Notes Problem Major depressive disorder, recurrent, mild (F33.0) 4 Active confirmed Problem Insomnia disorder related to another mental disorder (98408409) Insomnia due to other mental disorder (F51.05) 4 Active confirmed Problem Intermittent explosive disorder (46421605) Intermittent explosive disorder (F63.81) 4 Active confirmed Problem Mild mental retardation (Intelligence 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) (86692095) Mild intellectual disabilities (F70) 4 Active confirmed Vital Signs Heart Rate 73 /min 04/25/2025 Height-cm 187.96 cm 04/25/2025 Blood pressure diastolic 80 mm Hg 04/25/2025 Weight-kg 89.27 kg 04/25/2025 Height 74.00 in 04/25/2025 Blood pressure systolic 117 mm Hg 04/25/2025 Weight 196.8 lbs 04/25/2025 BMI 25.26 kg/m2 04/25/2025 Encounters Encounter Location Date Provider Diagnosis [employer] [address] [facility] [address] [address] 04/25/2025 Angel Velasquez Intermittent explosi ve disorder F63.81 ; Mild intellectual disabilities F70 ; Insomnia due to other mental disorder F51.05 and Major depressive disorder, recurrent, mild F33.0 [employer] [address] [facility] [address] [address] 05/18/2024 Angel Velasquez Intermittent explosi ve disorder F63.81 ; Mild intellectual disabilities F70 ; Insomnia due to other mental disorder F51.05 and Major depressive disorder, recurrent, mild F33.0 [employer] [address] [place] [address] 09/27/2024 Angel Velasquez Intermittent explosi ve disorder F63.81 ; Mild intellectual disabilities F70 ; Insomnia due to other mental disorder F51.05 and Major depressive disorder, recurrent, mild F33.0 [facility] [address] [place] [address] 01/24/2025 Angel Velasquez Intermittent explosi ve disorder F63.81 ; Mild intellectual disabilities F70 ; Insomnia due to other mental disorder F51.05 and Major depressive disorder, recurrent, mild F33.0 [facility] [address] [facility] [address] [place] [address] 10/22/2024 Angel Velasquez [facility] [address] [facility] [address] [place] [address] 09/17/2024 Angel Velasquez [facility] [address] [facility] [address] [place] [address] 04/05/2025 Angel Velasquez Assessments Encounter Date Diagnosis (ICD Code) Assessment Notes Treatment Notes Treatment Clinical Notes Section Notes 05/18/2024 Intermittent explosive disorder (ICD-10 - F63.81) 1. Impulse Control Disorder: - Plan: Continue Divalproex 125 mg twice a day - Plan: Continue Aripiprazole 7.5 mg daily (half of a 15 mg tablet) - Plan: Monitor for any changes in behavior or aggression 2. Mild Depression: - Plan: Continue Escitalopram 20 mg daily - Plan: Encourage social activities and support from friends and family - Plan: Monitor for any changes in mood or increased sadness Follow-up: Schedule a follow-up appointment in four months to reassess the patient's overall mental health, medication management, and any new concerns that may arise. 09/27/2024 Intermittent explosive disorder (ICD-10 - F63.81) 1. Intermittent Explosive Disorder: - Patient reports no recent episodes of anger or aggression. - Current medications: Depakote 125 mg twice a day, Abilify 7.5 mg daily (half of 15 mg) Plan: - Continue with current medications as they seem to be effective. - Monitor for any changes in mood or behavior. 2. Depression and Anxiety: - Patient appears to be doing well, with no reported concerns from the patient or caregiver. - Current medication: Escitalopram 20 mg daily Plan: - Continue with current medication as it seems to be effective. - Encourage the patient to maintain a healthy lifestyle, including regular exercise, a balanced diet, and adequate sleep. 3. General Health and Well-being: - Patient reports good sleep, appetite, and overall well-being. - Patient is currently employed at a [employer] and enjoys the job. Plan: - Encourage the patient to continue engaging in activities they enjoy and maintain a healthy lifestyle. Follow-up: - Schedule a follow-up appointment in 4 months to monitor the patient's progress and reassess the treatment plan as needed. 01/24/2025 Intermittent explosive disorder (ICD-10 - F63.81) 04/25/2025 Intermittent explosive disorder (ICD-10 - F63.81) 04/25/2025 Mild intellectual disabilities (ICD-10 - F70) 01/24/2025 Mild intellectual disabilities (ICD-10 - F70) 09/27/2024 Mild intellectual disabilities (ICD-10 - F70) 1. Intermittent Explosive Disorder: - Patient reports no recent episodes of anger or aggression. - Current medications: Depakote 125 mg twice a day, Abilify 7.5 mg daily (half of 15 mg) Plan: - Continue with current medications as they seem to be effective. - Monitor for any changes in mood or behavior. 2. Depression and Anxiety: - Patient appears to be doing well, with no reported concerns from the patient or caregiver. - Current medication: Escitalopram 20 mg daily Plan: - Continue with current medication as it seems to be effective. - Encourage the patient to maintain a healthy lifestyle, including regular exercise, a balanced diet, and adequate sleep. 3. General Health and Well-being: - Patient reports good sleep, appetite, and overall well-being. - Patient is currently employed at a [employer] and enjoys the job. Plan: - Encourage the patient to continue engaging in activities they enjoy and maintain a healthy lifestyle. Follow-up: - Schedule a follow-up appointment in 4 months to monitor the patient's progress and reassess the treatment plan as needed. 05/18/2024 Mild intellectual disabilities (ICD-10 - F70) 1. Impulse Control Disorder: - Plan: Continue Divalproex 125 mg twice a day - Plan: Continue Aripiprazole 7.5 mg daily (half of a 15 mg tablet) - Plan: Monitor for any changes in behavior or aggression 2. Mild Depression: - Plan: Continue Escitalopram 20 mg daily - Plan: Encourage social activities and support from friends and family - Plan: Monitor for any changes in mood or increased sadness Follow-up: Schedule a follow-up appointment in four months to reassess the patient's overall mental health, medication management, and any new concerns that may arise. 05/18/2024 Insomnia due to other mental disorder (ICD-10 - F51.05) 1. Impulse Control Disorder: - Plan: Continue Divalproex 125 mg twice a day - Plan: Continue Aripiprazole 7.5 mg daily (half of a 15 mg tablet) - Plan: Monitor for any changes in behavior or aggression 2. Mild Depression: - Plan: Continue Escitalopram 20 mg daily - Plan: Encourage social activities and support from friends and family - Plan: Monitor for any changes in mood or increased sadness Follow-up: Schedule a follow-up appointment in four months to reassess the patient's overall mental health, medication management, and any new concerns that may arise. 09/27/2024 Insomnia due to other mental disorder (ICD-10 - F51.05) 1. Intermittent Explosive Disorder: - Patient reports no recent episodes of anger or aggression. - Current medications: Depakote 125 mg twice a day, Abilify 7.5 mg daily (half of 15 mg) Plan: - Continue with current medications as they seem to be effective. - Monitor for any changes in mood or behavior. 2. Depression and Anxiety: - Patient appears to be doing well, with no reported concerns from the patient or caregiver. - Current medication: Escitalopram 20 mg daily Plan: - Continue with current medication as it seems to be effective. - Encourage the patient to maintain a healthy lifestyle, including regular exercise, a balanced diet, and adequate sleep. 3. General Health and Well-being: - Patient reports good sleep, appetite, and overall well-being. - Patient is currently employed at a [employer] and enjoys the job. Plan: - Encourage the patient to continue engaging in activities they enjoy and maintain a healthy lifestyle. Follow-up: - Schedule a follow-up appointment in 4 months to monitor the patient's progress and reassess the treatment plan as needed. 01/24/2025 Insomnia due to other mental disorder (ICD-10 - F51.05) stable 04/25/2025 Insomnia due to other mental disorder (ICD-10 - F51.05) stable 09/27/2024 Major depressive disorder, recurrent, mild (ICD-10 - F33.0) 1. Intermittent Explosive Disorder: - Patient reports no recent episodes of anger or aggression. - Current medications: Depakote 125 mg twice a day, Abilify 7.5 mg daily (half of 15 mg) Plan: - Continue with current medications as they seem to be effective. - Monitor for any changes in mood or behavior. 2. Depression and Anxiety: - Patient appears to be doing well, with no reported concerns from the patient or caregiver. - Current medication: Escitalopram 20 mg daily Plan: - Continue with current medication as it seems to be effective. - Encourage the patient to maintain a healthy lifestyle, including regular exercise, a balanced diet, and adequate sleep. 3. General Health and Well-being: - Patient reports good sleep, appetite, and overall well-being. - Patient is currently employed at a [employer] and enjoys the job. Plan: - Encourage the patient to continue engaging in activities they enjoy and maintain a healthy lifestyle. Follow-up: - Schedule a follow-up appointment in 4 months to monitor the patient's progress and reassess the treatment plan as needed. 01/24/2025 Major depressive disorder, recurrent, mild (ICD-10 - F33.0) 04/25/2025 Major depressive disorder, recurrent, mild (ICD-10 - F33.0) 05/18/2024 Major depressive disorder, recurrent, mild (ICD-10 - F33.0) 1. Impulse Control Disorder: - Plan: Continue Divalproex 125 mg twice a day - Plan: Continue Aripiprazole 7.5 mg daily (half of a 15 mg tablet) - Plan: Monitor for any changes in behavior or aggression 2. Mild Depression: - Plan: Continue Escitalopram 20 mg daily - Plan: Encourage social activities and support from friends and family - Plan: Monitor for any changes in mood or increased sadness Follow-up: Schedule a follow-up appointment in four months to reassess the patient's overall mental health, medication management, and any new concerns that may arise. 01/24/2025 Del Tan is a male patient with a history of psychiatric issues, currently stable on medication management, presenting for routine follow-up. Psychiatric disorder (unspecified) Assessment: Patient reports overall stable mood and improved emotional regulation, with decreased episodes of crying. No current issues with anger or agitation noted. Sleep and appetite are reported as normal. Patient is adherent to medication regimen, utilizing a mobile application for medication reminders. No adverse effects from current medications reported. Plan: - Continue current medication regimen: - Depakote 125 mg PO BID - Abilify 7.5 mg PO daily - Lexapro 20 mg PO daily - Maintain use of medication reminder application - Routine blood work scheduled for next week - Monitor for any changes in mood, sleep, or appetite the note is transcribed using speech recognition software. It is a reflection of a visit with the patient. It might have some inaccuracy, including medication names and transcribing errors, though efforts have been made to correct them. Plan Of Treatment Next Appt Details Provider Name:Angel diaz, 07/25/2025 11:15:00 AM, [address] [facility] [address] [facility] [address], [place], [address], Insurance Providers Payer Name Payer Address Payer Phone Subscriber Number Group Number Insured Name Patient Relationship to Insured Coverage Start Date Coverage End Date Medicare-I l Medicare [address] [place] [phone] [id number] BAYRON TAN Self - patient is the insured Medicaid-I l Medicaid [address] [address] [place] [address] [id number] BAYRON TAN Self - patient is the insured Medical (General) History Medical History History ICD Code Problems: Generalized convulsive epileps y Impulse control disorder Insomnia disorder related to another men justyna disorder Intellectual functioning disability Long-term current use of drug therapy Major depressive disorder Mild intellectual disability Mild recurrent major depression ,
--- OUTSIDE RECORDS SUMMARY | 2025-04-28 10:38 | XMS_ITS ---
Author Organization [facility] [employer] Address [address] [place] [address] Care Team Providers Care Senior Packaging Engineer Name Role Phone Larry DOS SANTOS, Marta Primary Care Provider Unavailable Angel Velasquez Unavailable [phone] Allergies Allergen (clinical drug ingredient) Drug/Non Drug Allergy documented on EMR Reaction Allergy Type Onset Date Status Substance with penicillin structure and antibacterial mechanism of action (substance) Penicillins Unknown Drug Allergy 01/19/2024 Active REASON FOR VISIT f/u Medications Medication SIG (Take, Route, Frequency, Duration) Notes Start Date End Date Status Divalproex Sodium 125 MG 1 tablet Oral T wice a day; Duration: 90 days Active ARIPiprazole 15 MG 0.5 tablet Oral Once a day; Duration: 90 days Active Escitalopram Oxalate 20 MG 1 tablet Oral Once a day; Duration: 90 days Active Fluocinonide 0.05 % External 01/19/2024 Active Clotrimazole 1% External 01/19/2024 Act christina Triamcinolone Acetonide 0.1% External 01/19/2024 Active Myrbetriq 25 MG Oral 01/19/2024 Act christina Famotidine 20 MG Oral 01/19/2024 Ac tive Ketoconazole 2% External 01/19/2024 Act christina traZODone HCl 50 MG Oral 01/19/2024 Active Social History Tobacco Use: Social History Observation Description Date Details (start date - stop date) Never Smoker NA - NA Sex Assigned At : Social History Observation Description Sex Assigned At Male Tobacco Control (Standard) Question Answer Notes Tobacco use: Nonsmoker Vital Signs Blood pressure systolic 117 mm Hg 04/25/20 25 Blood pressure diastolic 80 mm Hg 025 Heart Rate 73 /min 04/25/2025 Height 74.00 in 04/25/2025 Weight 196.8 lbs 04/25/2025 BMI 25.26 kg/m2 04/25/2025 Height-cm 187.96 cm 04/25/2025 Weight-kg 89.27 kg 04/25/2025 Encounters Encounter Location Date Provider Diagnosis [facility] [address] [facility] [address] [place] [address] 04/25/2025 Angel Velasquez Intermittent explosi ve disorder F63.81 ; Mild intellectual disabilities F70 ; Insomnia due to other mental disorder F51.05 and Major depressive disorder, recurrent, mild F33.0 Assessments Encounter Date Diagnosis (ICD Code) Assessment Notes Treatment Notes Treatment Clinical Notes Section Notes 04/25/2025 Intermittent explosive disorder (ICD-10 - F63.81) 04/25/2025 Mild intellectual disabilities (ICD-10 - F70) 04/25/2025 Insomnia due to other mental disorder (ICD-10 - F51.05) stable 04/25/2025 Major depressive disorder, recurrent, mild (ICD-10 - F33.0) Plan Of Treatment Medication Medication Name Sig Start Date Stop Date Notes Divalproex Sodium 125 MG 1 tablet Oral T wice a day; Duration: 90 days ARIPiprazole 15 MG 0.5 tablet Oral Once a day; Duration: 90 days Escitalopram Oxalate 20 MG 1 tablet Oral Once a day; Duration: 90 days Treatment Notes Assessment Notes Insomnia due to other mental disorder st able Next Appt Details Follow Up: 3 Months, Reason: f/u intermittent explosive d/o Provider Name:Angel diaz, 07/25/2025 11:15:00 AM, [facility], [facility] [address], [place], [address], Progress Notes * BAYRON TAN CDOB:02/1980 (44 yo M)Acc No.[id number]:04/25/2025 Patient: BAYRON MADERA Provider: LISSETTE VELEZ :1980 A ge:44 Y S ex:Male Date:04/25/2025 Address:[address], [address] [place], [place] [id number] Pcp:Marta Young Subjective: * Chief Complaints: * 1 . F/u. * HPI: H istory of Presenting Problem: Medication Side Effects d enies. Mood lability c olivia at times when thinking about historical figures who have passed He has history of outbursts, aggression, tearfulness.. D epression Screening: TARIK-7 (2018 Edition) F eeling nervous, anxious, or on edge S everal N ot being able to stop or control worrying?Several days W orrying too much about different things S ever T rouble relaxing N ot at all B eing so restless that it is hard to sit still N ot at all B ecoming easily annoyed or irritable N ot at all F eeling afraid as if something awful might happen N ot at all T otal TARIK-7 Score 3 I f you checked any problems, how difficult have they made it for you to do your work, take care of things at home, or get along with other people? N ot difficult at all I nterpretation of Total ( 0 to 4) No Anxiety C [place]-Suicide Severity Rating Scale: Suicide Risk (CSRS-screener) i n the past one month Have you wished you were or wished you could go to sleep and not wake up? N o i n the past one month Have you actually had any thoughts of killing yourself? N o D epression screening: PHQ-9 L ittle interest or pleasure in doing things?Not at all F eeling down, depressed, or hopeless N ot at all T rouble falling or staying asleep, or sleeping too much S everal days F eeling tired or having little energy N ot at all P oor appetite or overeating N ot at all F eeling bad about yourself or that you are a failure, or have let yourself or your family down N ot at all T rouble concentrating on things, such as reading the newspaper or watching television N ot at all M oving or speaking so slowly that other people could have noticed; or the opposite, being so fidgety or restless that you have been moving around a lot more than usual N ot at all T houghts that you would be better off or of hurting yourself in some way N ot at all T otal Score 1 I nterpretation M inimal Depression Intervention D epression Screening Findings N egative F ollow-Up for Depression P sychiatric follow-up S uicide Risk Assessment Performed - -date C ontributing Factors: ... l leigha in supportive living, has work station support specialist to assist him. Good family support.. * Medical History: P roblems: Generalized convulsive epilepsy, Impulse control disorder, Insomnia disorder related to another mental disorder, Intellectual functioning disability, Long- term current use of drug therapy, Major depressive disorder, Mild intellectual disability, Mild recurrent major depression, ,. * Social History: T obacco Use: T obacco Control (Standard) T obacco use: N onsmoker M igrated Social History: M igrated Social History: Alcohol Intake: Occasional 04/09/2021,Tobacco Years: Never smoker 04/09/2019,Smoking Status: 0 09/16/2023. * Medications: T aking Triamcinolone Acetonide 0.1% Cream External , Taking Myrbetriq 25 MG Tablet Extended Release 24 Hour Oral , Taking Famotidine 20 MG Tablet Oral , Taking Ketoconazole 2% Cream External , Taking traZODone HCl 50 MG Tablet Oral , Taking Fluocinonide 0.05 % Cream External , Taking Clotrimazole 1% Cream External , Taking Divalproex Sodium 125 MG Tablet Delayed Release 1 tablet Oral Twice a day , Taking ARIPiprazole 15 MG Tablet 0.5 tablet Oral Once a day , Taking Escitalopram Oxalate 20 MG Tablet 1 tablet Oral Once a day , Medication List reviewed and reconciled with the patient * Allergies: P enicillins: Allergy - Onset Date 01/19/2024. Objective: * Vitals: B P:117/80mm Hg, HR:73/min, Wt:196.8lbs, Wt-k.27 kg, Ht: 74.00 in, Ht-cm: 187.96 cm, BMI:25.26Index, Body Surface Area: 2.16. * Examination: P sychiatry: Separation from caregiver during interview process: m om present. Appearance: l ooks away when spoken to, laughs inappropriately. Abnormal body movements: n one. Affect / mood: h appy, laughs. Speech / language: d ysarthric. Assessment: * Assessment: 1. I ntermittent explosive disorder - F63.81 2 . M ild intellectual disabilities - F70 3 . I nsomnia due to other mental disorder - F51.05 4 . M ajor depressive disorder, recurrent, mild - F33.0 Plan: * Treatment: 2. I nsomnia due to other mental disorder Notes: stable 3. M ajor depressive disorder, recurrent, mild Refill Escitalopram Oxalate Tablet, 20 MG, 1 tablet, Oral, Once a day, 90 days, 90 Tablet, Refills 1. * Procedure Codes: 1 036F TOBACCO NON-USER, 84560 BEHAV ASSMT W/SCORE & DOCD/STAND INSTRUMENT * Preventive Medicine: Screenings: D epression screening Have you had a recent depression screening? Y es * Follow Up: 3 Months (Reason: f/u intermittent explosive d/o) * Billing Information: * Visit Code: 69246 OFFICE OUTPATIENT VISIT 25 MINUTES DETAILED HISTORY AND EXAM/MODERATE MEDICAL DECISION MAKING. * Procedure Codes: 1036F TOBACCO NON-USER. 67863 BEHAV ASSMT W/SCORE & DOCD/STAND INSTRUMENT. * Electronic signature of LISSETTE Larios on 04/28/2025 at 10:38 AM CDT Sign off status: Pending * Provider: LISSETTE VELEZ Date: 04/25/2025 Generated for Stan dash/Yumiko/eTwiliansmitting on: 04/28/2025 10:38 AM CDT History and Physical Notes * HPI (History of Present Illness) Category Sub-Category Detail Notes Category Not es History of Presenting Problem Mood lability cries at times when thinking about historical figures who have passed He has history of outbursts, aggression, tearfulness. Medication Side Effects denies Contributing Factors ... lives in [facility], has work station support specialist to assist him. Good family support. Depression screening PHQ-9 Little inte rest or pleasure in doing things: Not at all Feeling down, depressed, or hopeless: No t at all Trouble falling or staying asleep, or sl eeping too much: Several days Feeling tired or having little energy: N ot at all Poor appetite or overeating: Not at all Feeling bad about yourself o r that you are a failure, or have let yourself or your family down: Not at all Trouble concentrating on thi ngs, such as reading the newspaper or watching television: Not at all Moving or speaking so slowly that other people could have noticed; or the opposite, being so fidgety or restless that you have been moving around a lot more than usual: Not at all Thoughts that you would be b darrius off or of hurting yourself in some way: Not at all Total Score: 1 Interpretation: Minimal Depression Intervention Depression Screening Findings: N egative Follow-Up for Depression: Psychiatric fo llow-up Suicide Risk Assessment Performed: --lb e Depression Screening TARIK-7 (2018 Edition) Feelin g nervous, anxious, or on edge: Several days Not being able to stop or control worryi ng: Several days Worrying too much about different things : Several days Trouble relaxing: Not at all Being so restless that it is hard to sit still: Not at all Becoming easily annoyed or irritable: No t at all Feeling afraid as if something awful alvino ht happen: Not at all Total TARIK-7 Score: 3 If you checked any problems, how difficult have they made it for you to do your work, take care of things at home, or get along with other people?: Not difficult at all Interpretation of Total: (0 to 4) No Anx iety [place]-Suicide Severity Rating Scale Suicide Risk (CSRS-screener) in the past one month Have you wished you were or wished you could go to sleep and not wake up?: No in the past one month Have y ou actually had any thoughts of killing yourself?: No Examination Category Sub-Category Detail Notes Category Not es Psychiatry Appearance: looks away when spoken to, laughs inappropriately Abnormal body movements: none Affect / mood: happy, laughs Speech / language: dysarthric Separation from caregiver during intervi ew process: mom present
== END 2025-04-28 10:33 | disposition home or self-care (01) ==
PROVIDERS: PCP Family Medicine; Visit Provider Urology
DX: R93.89 Abnormal findings on diagnostic imaging of other specified body structures (principal); N20.0 Calculus of kidney
CPT/HCPCS: 74018